=== PATIENT | female | born 1955 | race Two or more races ===

== ENCOUNTER 2017-05-16 19:01 | Emergency (ER) | payer MEDICARE, OTHER ==
[2017-05-16 19:46] LABS: ABSOLUTE BASOPHILS # (AUTO) 0.1 10^3/uL (0.0-0.2); ABSOLUTE EOSINOPHILS # (AUTO) 0.1 10^3/uL (0.0-0.6); ABSOLUTE MONOCYTES (AUTO) 0.5 10^3/uL (0.1-1.4); ABSOLUTE NEUT (AUTO) 3.7 10^3/uL (1.7-8.2); BASOPHILS % (AUTO) 0.7 % (0-2); EOSINOPHILS % (AUTO) 1.8 % (0-6); HEMATOCRIT 39.9 % (36.0-47.0); HEMOGLOBIN 13.4 g/dL (12.0-15.5); LYMPHOCYTES % (AUTO) 40.3 % (13-45); MEAN CORPUSCULAR HEMOGLOBIN 29.6 pg (27.0-33.4); MEAN CORPUSCULAR HGB CONC 33.5 g/dL (32.0-36.0); MEAN CORPUSCULAR VOLUME 88 fl (80-97); MONOCYTES % (AUTO) 7.1 % (3-13); PLATELET COUNT 244 10^3/uL (150-450); RED BLOOD COUNT 4.51 10^6/uL (3.72-5.28); RED CELL DISTRIBUTION WIDTH 15.4 % (11.5-14.0); SEGMENTED NEUTROPHILS % (AUTO) 50.1 % (42-78); TOTAL CELLS COUNTED % (AUTO) 100 %; WHITE BLOOD COUNT 7.3 10^3/uL (4.0-10.5)
[2017-05-16 19:55] LABS: ALANINE AMINOTRANSFERASE 30 U/L (9-52); ALBUMIN 4.5 g/dL (3.5-5.0); ALKALINE PHOSPHATASE 68 U/L (38-126); ANION GAP 13 (5-19); ASPARTATE AMINO TRANSFERASE 27 U/L (14-36); BILIRUBIN,DIRECT 0.3 mg/dL (0.0-0.4); BILIRUBIN,TOTAL 0.3 mg/dL (0.2-1.3); BLOOD UREA NITROGEN 14 mg/dL (7-20); CALCIUM 9.3 mg/dL (8.4-10.2); CARBON DIOXIDE 22 mmol/L (22-30); CHLORIDE 102 mmol/L (98-107); CREATINE KINASE 60 U/L (30-135); GLUCOSE 101 mg/dL (75-110); SODIUM 136.6 mmol/L (137-145); TOTAL PROTEIN 7.2 g/dL (6.3-8.2)
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
[2017-05-16 20:06] LABS: ANISOCYTOSIS SLIGHT; CREATINE KINASE MB 0.44 ng/mL (<4.55); PLATELET COMMENT ADEQUATE; POIKILOCYTOSIS SLIGHT; STOMATOCYTES SLIGHT; TOXIC GRANULATION SLIGHT
[2017-05-16 20:10] LABS: TROPONIN I < 0.012 ng/mL
[2017-05-16 20:25] LABS: ACETAMINOPHEN < 10 ug/mL (10-30); ALCOHOL < 10 mg/dL (NONE DETECTED); SALICYLATE < 1.0 mg/dL (2.0-20.0)
[2017-05-16] MEDS ORDERED: LORAZEPAM INJ 2 MG/1 ML VIAL IV ONE (20:46)
--- NOTE | 2017-05-16 20:54 | RADIOLOGY REPORT (SQ) ---
EXAM DESCRIPTION: CHEST SINGLE VIEW COMPLETED DATE/TIME: 05/16/2017 8:46 pm REASON FOR STUDY: altered mental status COMPARISON: None. EXAM PARAMETERS: NUMBER OF VIEWS: One view. TECHNIQUE: Single frontal radiographic view of the chest acquired. RADIATION DOSE: NA LIMITATIONS: None. FINDINGS: LUNGS AND PLEURA: No opacities, masses or pneumothorax. No pleural effusion. MEDIASTINUM AND HILAR STRUCTURES: No masses. Contour normal. HEART AND VASCULAR STRUCTURES: Heart normal in size. Normal vasculature. BONES: No acute findings. HARDWARE: None in the chest. OTHER: No other significant finding. IMPRESSION: NO ACUTE RADIOGRAPHIC FINDING IN THE CHEST. TECHNICAL DOCUMENTATION: JOB ID: [id number] [employer]- All Rights Reserved Reading location - IP/workstation name: [email or web address]
--- NOTE | 2017-05-16 21:48 | EKG REPORT ---
SEVERITY:- NORMAL ECG - SINUS RHYTHM : Confirmed by: Anna Hinton 16-May-2017 21:47:30
--- NOTE | 2017-05-16 21:57 | RADIOLOGY REPORT (SQ) ---
EXAM DESCRIPTION: CT HEAD WITHOUT COMPLETED DATE/TIME: 05/16/2017 9:44 pm REASON FOR STUDY: confusion, seizure like activity COMPARISON: None. TECHNIQUE: Axial images acquired through the brain without intravenous contrast. Images reviewed wi th bone, brain and subdural windows. Images stored on PACS. All CT scanners at this facility use dose modulation, iterative reconstruction, and/or weight based d osing when appropriate to reduce radiation dose to as low as reasonably achievable (ALARA). [facility]: Dose Right [facility]: CareDose [facility]: Dose Right [facility]: Teradose 4D [facility]: Smart [email or web address] RADIATION DOSE: CT Rad equipment meets quality standard of care and radiation dose reduction techniq ues were employed. CTDIvol: 64.6 mGy. DLP: 1163 mGy-cm. mGy. LIMITATIONS: None. FINDINGS: VENTRICLES: Normal size and contour. CEREBRUM: No masses. No hemorrhage. No midline shift. No evidence for acute infarction. Normal gra y/white matter differentiation. No areas of low density in the white matter. CEREBELLUM: No masses. No hemorrhage. No alteration of density. No evidence for acute infarction. EXTRAAXIAL SPACES: No fluid collections. No masses. ORBITS AND GLOBE: No intra- or extraconal masses. Normal contour of globe without masses. CALVARIUM: No fracture. PARANASAL SINUSES: No fluid or mucosal thickening. SOFT TISSUES: No mass or hematoma. OTHER: No other significant finding. IMPRESSION: NORMAL BRAIN CT WITHOUT CONTRAST. EVIDENCE OF ACUTE STROKE: NO. COMMENT: Quality ID # [id number]: Final reports with documentation of one or more dose reduction techniques (e.g., Automated exposure control, adjustment of the mA and/or kV according to patient size, use of iterative reconstruction technique) TECHNICAL DOCUMENTATION: JOB ID: [id number] [employer]- All Rights Reserved Reading location - IP/workstation name: [email or web address]
[2017-05-16] MEDS ORDERED: METOCLOPRAMIDE HCL INJ/PF 10 MG/2 ML SDV IV ONE (22:27)
[2017-05-16] MEDS ORDERED: KETOROLAC TROMETHAMINE INJ/PF 30 MG/1 ML SDV IV ONE (22:27)
[2017-05-16 22:32] LABS: APPEARANCE,URINE CLEAR; BILIRUBIN,URINE NEGATIVE (NEGATIVE); COLOR,URINE STRAW; GLUCOSE, URINE NEGATIVE (NEGATIVE); KETONES,URINE NEGATIVE (NEGATIVE); LEUKOCYTE ESTERASE,URINE NEGATIVE (NEGATIVE); NITRITE,URINE NEGATIVE (NEGATIVE); PROTEIN,URINE NEGATIVE (NEGATIVE); URINE SPECIFIC GRAVITY 1.006; UROBILINOGEN,URINE NEGATIVE mg/dL (<2.0)
[2017-05-16 22:44] LABS: URINE AMPHETAMINES SCREEN NEGATIVE; URINE BARBITURATES SCREEN NEGATIVE; URINE BENZODIAZEPINES SCREEN UNCONFIRMED POSITIVE; URINE COCAINE SCREEN NEGATIVE; URINE MARIJUANA (THC) SCREEN NEGATIVE; URINE METHADONE SCREEN NEGATIVE; URINE PHENCYCLIDINE SCREEN NEGATIVE
[2017-05-17] MEDS ORDERED: HYDROCODONE/ACETAMINOPHEN 5-325 MG (6 TAB/ER DISP) PO PRN (00:04)
[2017-05-17 00:10] VITALS: BP 102/68
== END 2017-05-17 00:23 | disposition home or self-care (01) ==
LOC: ER 19:01
DX: R29.818 Other symptoms and signs involving the nervous system (principal); R41.0 Disorientation, unspecified; R51 Headache; I10 Essential (primary) hypertension; M54.9 Dorsalgia, unspecified; G89.29 Other chronic pain; Z79.891 Long term (current) use of opiate analgesic; Z79.899 Other long term (current) drug therapy; Z78.1 Physical restraint status
CPT/HCPCS: 93005; 99285; 96374; 96375; 36415; 82553; 80307 ×4; 82550; 83735; 85025; 80053; 81001; 84484; 71045; 70450; 93010; J1885; J2765; J2060; A9270

== ENCOUNTER 2017-07-27 10:44 | Inpatient (IN) | payer MEDICARE, OTHER ==
[2017-07-27] MEDS ORDERED: NORMAL SALINE 1000 ML 1,000 ML IV ONE (11:17)
--- NOTE | 2017-07-27 11:18 | ER Document Report ---
ED Medical Screen (RME) - General Chief Complaint: Abdominal Pain Stated Complaint: ABDOMINAL PAIN Time Seen by Provider: 07/27/17 11:16 TRAVEL OUTSIDE OF THE [place] IN LAST 30 DAYS: No - HPI Notes: 07/27/17 11:21 Pleasant 61-year-old female presents with increasing upper abdominal pain nausea vomiting decreased stool. Patient has a distant history of gastric bypass done in the early 80s. Patient states she has a history of obstruction long time ago. Did not require surgical resection. States she has not had a normal bowel movement in 2 weeks also. 5 days ago as did flatus. Patient now unable to tolerate oral intake due to profound nausea and vomiting. Denies fever chills or trauma to her abdomen. Sent over by her PCP who provides medical records. - Related Data Allergies/Adverse Reactions: codeine Allergy (Verified 07/27/17 10:51) Past Medical History - Past Medical History Cardiac Medical History: Reports: Hx Hypertension Musculoskeltal Medical History: Reports Hx Musculoskeletal Deformity, Reports Hx Musculoskeletal Trauma Physical Exam - Vital signs Vitals: Temp Pulse Resp BP Pulse Ox 98.7 F 82 16 119/59 L 97 07/27/17 11:05 07/27/17 11:05 07/27/17 11:05 07/27/17 11:05 07/27/17 11:05 Course - Vital Signs Vital signs: Temp Pulse Resp BP Pulse Ox 98.7 F 82 16 119/59 L 97 07/27/17 11:05 07/27/17 11:05 07/27/17 11:05 07/27/17 11:05 07/27/17 11:05
[2017-07-27] MEDS ORDERED: ONDANSETRON HCL INJ/PF 4 MG/2 ML SDV IV ONE ×2 (11:21→13:28)
[2017-07-27 12:03] LABS: HEMATOCRIT 43.7 % (36.0-47.0); MEAN CORPUSCULAR HEMOGLOBIN 31.5 pg (27.0-33.4); MEAN CORPUSCULAR HGB CONC 34.2 g/dL (32.0-36.0); MEAN CORPUSCULAR VOLUME 92 fl (80-97); PLATELET COUNT 293 10^3/uL (150-450); RED BLOOD COUNT 4.76 10^6/uL (3.72-5.28); RED CELL DISTRIBUTION WIDTH 13.6 % (11.5-14.0); WHITE BLOOD COUNT 20.4 10^3/uL (4.0-10.5)
--- NOTE | 2017-07-27 12:19 | ER Document Report ---
ED GI/ - General Mode of Arrival: Ambulatory Information source: Patient TRAVEL OUTSIDE OF THE [place] IN LAST 30 DAYS: No - Related Data Home Medications: Celebrex. Vitamins. [place]. Baclofen <RADHA RAMSAY - Last Filed: 07/27/17 12:19> <WALKER FERREIRA - Last Filed: 07/27/17 19:21> - General Chief Complaint: Abdominal Pain Stated Complaint: ABDOMINAL PAIN Time Seen by Provider: 07/27/17 11:16 Notes: Patient is a 61-year-old female with remote gastric bypass surgery who presents to the emergency department today with complaints of upper abdominal pain. Patient has had a bowel obstruction in the past and she feels like her symptoms today feels like her bowel obstruction in the past. Patient states "anything that she puts in her mouth she vomits back up minutes later". Patient states she feels "bloated and gassy". Patient states she has had no flatulence or bowel movement since the end of June. Patient states she had chills last night. Patient denies seeing any blood in her vomit. (RADHA RAMSAY) - Related Data Allergies/Adverse Reactions: codeine Allergy (Verified 07/27/17 10:51) Past Medical History - General Information source: Patient - Social History Smoking Status: Never Smoker Cigarette use (# per day): No Chew tobacco use (# tins/day): No Frequency of alcohol use: None Drug Abuse: None Lives with: Family Family History: Reviewed & Not Pertinent Patient has suicidal ideation: No Patient has homicidal ideation: No - Past Medical History Cardiac Medical History: Reports: Hx Hypertension GI Medical History: Reports: Hx Gastroesophageal Reflux Disease Musculoskeltal Medical History: Reports Hx Musculoskeletal Deformity, Reports Hx Musculoskeletal Trauma Past Surgical History: Reports: Hx Appendectomy, Hx Cholecystectomy, Hx Hysterectomy, Hx Orthopedic Surgery - Back SxComment Only: Hx Vascular Surgery - Gastroplasty <RADHA RAMSAY - Last Filed: 07/27/17 12:19> Review of Systems - Review of Systems Constitutional: See HPI, Chills. denies: Fever EENT: No symptoms reported Cardiovascular: No symptoms reported Respiratory: No symptoms reported Gastrointestinal: See HPI, Abdominal pain, Nausea, Vomiting. denies: Diarrhea, Blood streaked bowels, Blood in vomit Genitourinary: No symptoms reported Female Genitourinary: No symptoms reported Musculoskeletal: No symptoms reported Skin: No symptoms reported Hematologic/Lymphatic: No symptoms reported Neurological/Psychological: No symptoms reported -: Yes All other systems reviewed and negative <RADHA RAMSAY - Last Filed: 07/27/17 12:19> Physical Exam <RADHA RAMSAY - Last Filed: 07/27/17 12:19> <WALKER FERREIRA - Last Filed: 07/27/17 19:21> - Vital signs Vitals: Temp Pulse Resp BP Pulse Ox 98.7 F 82 16 119/59 L 97 07/27/17 11:05 07/27/17 11:05 07/27/17 11:05 07/27/17 11:05 07/27/17 11:05 - Notes Notes: PHYSICAL EXAM GENERAL: Alert, interacts well. No acute distress. HEAD: Normocephalic, atraumatic. EYES: Pupils equal, round, and reactive to light. Extraocular movements intact. ENT: Oral mucosa moist, tongue midline. NECK: Full range of motion. Supple. Trachea midline. LUNGS: Clear to auscultation bilaterally, no wheezes, rales, or rhonchi. No respiratory distress. HEART: Regular rate and rhythm. No murmurs, gallops, or rubs. ABDOMEN: Soft, tenderness with palpation over LUQ, area is semi firm. Mild distension. Minimal bowel sounds present in all 4 quadrants after 30 seconds of listening. No guarding, rigidity, or rebound. EXTREMITIES: Moves all 4 extremities spontaneously. No edema, radial and dorsalis pedis pulses 2/4 bilaterally. No cyanosis. NEUROLOGICAL: Alert and oriented x3. Normal speech. PSYCH: Normal affect, normal mood. SKIN: Warm, dry, normal turgor. Mottled skin over low back consistent with chronic usage of heating pad. (RADHA RAMSAY) Course - Laboratory Result Diagrams: 07/27/17 11:47 07/27/17 11:47 <RADHA RAMSAY - Last Filed: 07/27/17 12:19> - Laboratory Result Diagrams: 07/27/17 11:47 07/27/17 11:47 <WALKER FERREIRA - Last Filed: 07/27/17 19:21> - Re-evaluation Re-evalutation: 07/27/17 16:59 Patient's history is quite concerning for small bowel obstruction, acute abdominal series shows a large amount of stool but no obvious obstruction, IV and orally contrast a CAT scan shows partial small bowel obstruction with a transition point around the jejunum, no evidence of perforation or inflammation , abdomen is not peritoneal, she does have white count of 20.4 with a bandemia, chemistries do not show any renal failure lactic acid is normal, urinalysis shows moderate blood but no signs of in infection, the trace leukocyte esterase is likely contamination from the squamous epithelial cells. Discussed the case with Dr. De León and Dr. Galaviz, Dr. Ford agrees to admit the patient, Dr. Galaviz agrees to consult. Dr. Galaviz recommends against an NG tube given the gastric bypass surgery in the small pouch. Patient will be kept n.p.o. and watched at this point. (WALKER FERREIRA) - Vital Signs Vital signs: Temp Pulse Resp BP Pulse Ox 98.7 F 82 16 119/59 L 97 07/27/17 11:05 07/27/17 11:05 07/27/17 11:05 07/27/17 11:05 07/27/17 11:05 - Laboratory Laboratory results interpreted by me: 07/27/17 07/27/17 07/27/17 11:47 11:47 13:28 WBC 20.4 H Band Neutrophils % 6 H Lymphocytes % (Manual) 6 L Abs Neuts (Manual) 17.1 H Abs Monocytes (Manual) 2.0 H Chloride 92 L Glucose 117 H Calcium 10.7 H Total Bilirubin 1.4 H Direct Bilirubin 0.5 H Total Protein 8.6 H Albumin 5.2 H Urine Ketones TRACE H Urine Blood MODERATE H Urine Bilirubin SMALL H Urine Urobilinogen 4.0 H Ur Leukocyte Esterase TRACE H Discharge <RADHA RAMSAY - Last Filed: 07/27/17 12:19> - Discharge Admitting Provider: [facility] Unit Admitted: Telemetry <WALKER FERREIRA - Last Filed: 07/27/17 19:21> - Discharge Clinical Impression: Partial small bowel obstruction Condition: Fair Disposition: ADMITTED INPATIENT Scribe Attestation: 07/27/17 19:21 I personally performed the services described in the documentation, reviewed and edited the documentation which was dictated to the scribe in my presence, and it accurately records my words and actions. (WALKER FERREIRA) Scribe Documentation - Scribe Written by Scribe:: Angelique Meier, 07/27/2017 1239 acting as scribe for :: Lynne <RADHA RAMSAY - Last Filed: 07/27/17 12:19>
[2017-07-27 12:24] LABS: ALANINE AMINOTRANSFERASE 27 U/L (9-52); ALBUMIN 5.2 g/dL (3.5-5.0); ALKALINE PHOSPHATASE 70 U/L (38-126); ANION GAP 18 (5-19); ASPARTATE AMINO TRANSFERASE 27 U/L (14-36); BILIRUBIN,DIRECT 0.5 mg/dL (0.0-0.4); BILIRUBIN,TOTAL 1.4 mg/dL (0.2-1.3); BLOOD UREA NITROGEN 20 mg/dL (7-20); CALCIUM 10.7 mg/dL (8.4-10.2); CARBON DIOXIDE 29 mmol/L (22-30); CHLORIDE 92 mmol/L (98-107); GLUCOSE 117 mg/dL (75-110); LIPASE 136.2 U/L (23-300); POTASSIUM 4.3 mmol/L (3.6-5.0); SODIUM 138.5 mmol/L (137-145); TOTAL PROTEIN 8.6 g/dL (6.3-8.2)
[2017-07-27 12:27] LABS: ABSOLUTE LYMPHOCYTES# (MANUAL) 1.2 10^3/uL (0.5-4.7); ABSOLUTE NEUTROPHILS# (MANUAL) 17.1 10^3/uL (1.7-8.2); BAND NEUTROPHILS % (MANUAL) 6 % (3-5); BASOPHILS % (MANUAL) 0 % (0-2); EOSINOPHILS % (MANUAL) 0 % (0-6); LYMPHOCYTES % (MANUAL) 6 % (13-45); MONOCYTES % (MANUAL) 10 % (3-13); PLATELET COMMENT ADEQUATE; RBC MORPHOLOGY COMMENT NORMO-CYTIC/CHROMIC; SEGMENTED NEUTROPHILS % (MAN) 78 % (42-78); TOTAL CELLS COUNTED 100; TOXIC GRANULATION SLIGHT
--- NOTE | 2017-07-27 13:05 | RADIOLOGY REPORT (SQ) ---
EXAM DESCRIPTION: ACUTE ABDOMEN SERIES COMPLETED DATE/TIME: 07/27/2017 12:46 pm REASON FOR STUDY: no BM or gas x 5 days, vom, suspect SBO COMPARISON: None. NUMBER OF VIEWS: Three views. TECHNIQUE: Frontal chest, supine abdomen and upright/decubitus abdomen radiographic images acquired. LIMITATIONS: None. FINDINGS: CHEST: Lungs clear of infiltrates. FREE AIR: None. No abnormal gas collections. BOWEL GAS PATTERN: Nonobstructive pattern. No dilated loops or air fluid levels. Prominent stool thr oughout the colon. CALCIFICATIONS: No suspicious calcifications. HARDWARE: Surgical clips. Hardware in the lumbar spine. SOFT TISSUES: No gross mass or suggestion of organomegaly. BONES: No acute fracture. No worrisome bone lesions. OTHER: No other significant finding. IMPRESSION: NO RADIOGRAPHIC EVIDENCE FOR ACUTE ABDOMINAL DISEASE. PROMINENT STOOL THROUGHOUT THE CO LESLYE. TECHNICAL DOCUMENTATION: JOB ID: [id number] [employer]- All Rights Reserved Reading location - IP/workstation name: [email or web address]-COUNT INCLUDES THE [facility]-RR
[2017-07-27] MEDS ORDERED: MORPHINE SULFATE 10 MG/ML INJ IV ONE ×2 (13:28→16:54)
[2017-07-27 14:02] LABS: APPEARANCE,URINE SLIGHTLY-CLOUDY; BILIRUBIN,URINE SMALL (NEGATIVE); GLUCOSE, URINE NEGATIVE (NEGATIVE); KETONES,URINE TRACE mg/dL (NEGATIVE); LEUKOCYTE ESTERASE,URINE TRACE (NEGATIVE); NITRITE,URINE NEGATIVE (NEGATIVE); PROTEIN,URINE NEGATIVE (NEGATIVE); URINE SPECIFIC GRAVITY 1.021
[2017-07-27 14:03] LABS: COLOR,URINE YELLOW
--- NOTE | 2017-07-27 16:02 | RADIOLOGY REPORT (SQ) ---
EXAM DESCRIPTION: CT ABD/PELVIS WITH IV ORAL COMPLETED DATE/TIME: 07/27/2017 3:43 pm REASON FOR STUDY: no BM x 5 days, h/o gastric bypass, r/o SBO COMPARISON: None. TECHNIQUE: CT scan of the abdomen and pelvis performed using helical scanning technique with dynamic intravenous contrast injection. Oral contrast. Images reviewed with lung, soft tissue, and bone win dows. Reconstructed coronal and sagittal MPR images reviewed. Delayed images for evaluation of the ur inary system also acquired. All images stored on PACS. All CT scanners at this facility use dose modulation, iterative reconstruction, and/or weight based d osing when appropriate to reduce radiation dose to as low as reasonably achievable (ALARA). [facility]: Dose Right [facility]: CareDose [facility]: Dose Right [facility]: Teradose 4D [facility]: [employer] CONTRAST TYPE AND DOSE: Contrast type and dose not recorded. RENAL FUNCTION: BUN 20 creatinine 0.93 RADIATION DOSE: CT Rad equipment meets quality standard of care and radiation dose reduction techniq ues were employed. CTDIvol: 8.1 - 11.1 mGy. DLP: 1052 mGy-cm.. LIMITATIONS: None. FINDINGS: LOWER CHEST: There are faintly defined ground-glass infiltrates in the right lower lobe. LIVER: Normal size. No masses. No dilated ducts. SPLEEN: Normal size. No focal lesions. PANCREAS: No masses. No significant calcifications. No adjacent inflammation or peripancreatic fluid collections. Pancreatic duct not dilated. GALLBLADDER: Surgically absent. ADRENAL GLANDS: No significant masses or asymmetry. RIGHT KIDNEY AND URETER: No solid masses. No significant calcifications. No hydronephrosis or hyd roureter. LEFT KIDNEY AND URETER: No solid masses. No significant calcifications. No hydronephrosis or hydr oureter. AORTA AND VESSELS: No aneurysm. No dissection. Renal arteries, SMA, celiac without stenosis. RETROPERITONEUM: No retroperitoneal adenopathy, hemorrhage or masses. BOWEL AND PERITONEAL CAVITY: Radiopaque suture is present in association with the stomach. There are dilated loops of jejunum on the left. A transition point is just to the left of the midline on imag e 49. Descending and sigmoid diverticula are present with no acute inflammatory changes. APPENDIX: Surgically absent. PELVIS: No mass. No free fluid. Normal bladder. ABDOMINAL WALL: No masses. No hernias. BONES: Posterior rods at L4-5 and L5-S1. OTHER: No other significant finding. IMPRESSION: 1. Ill-defined ground-glass infiltrates in the right lower lobe may suggest chronic int erstitial changes, but may suggest acute infection. 2. Partial small bowel obstruction. 3. Diverticulosis coli. TECHNICAL DOCUMENTATION: JOB ID: [id number] Quality ID # [id number]: Final reports with documentation of one or more dose reduction techniques (e.g., Au tomated exposure control, adjustment of the mA and/or kV according to patient size, use of iterative reconstruction technique) 2010 [employer]- All Rights Reserved Reading location - IP/workstation name: [email or web address]
[2017-07-27] MEDS ORDERED: HYDROMORPHONE HCL INJ/PF 2 MG/ML AMPULE IV ONE (17:00)
--- NOTE | 2017-07-27 18:23 | PDOC CONSULTATION ---
Consultation Consult Date: 07/27/17 Consult reason:: Small bowel obstruction status post gastric bypass History of Present Illness Admission Date/PCP: 07/27/17 17:16 LIA WILKINS MD Patient complains of: Abdominal pain and nausea vomiting. History of Present Illness: ESTELA RIVERA is a 61 year old female with a history of open gastric bypass ( in the 80s). The patient reports a 5 day history of an inability to take p.o. She reports that all solids and liquids are vomited immediately after swallowing. She denies any bilious emesis. Patient reports bloating and left upper quadrant abdominal pain. Her pain is severe and constant. It is sharp and stabbing. The patient denies chest pain, shortness of breath, fevers, chills, melena, hematochezia, hematemesis. The patient reports a history of anemia and new onset seizures. The patient does not follow with a bariatric surgeon. Nothing makes her pain better. Palpation and movement make her pain worse. At the worst, her pain was 10 out of 10. After pain medication in the emergency department she reports her pain is a 4 out of 10. Past Medical History Cardiac Medical History: Reports: Hypertension Neurological Medical History: Reports: Seizures GI Medical History: Reports: Gastroesophageal Reflux Disease, Other - History of gastric bypass. Past Surgical History Past Surgical History: Reports: Appendectomy, Cholecystectomy, Hysterectomy, Orthopedic Surgery - Back Sx Comment Only: Vascular Surgery - Gastroplasty Social History Lives with: Family Smoking Status: Never Smoker Frequency of Alcohol Use: None Family History Family History: Reviewed & Not Pertinent Parental Family History Reviewed: Yes Children Family History Reviewed: Yes Sibling(s) Family History Reviewed.: Yes Medication/Allergy Home Medications: Celecoxib [Celebrex 100 mg Capsule] 100 mg PO Q12 07/27/17 Esomeprazole Mag Trihydrate [Nexium] 40 mg PO DAILY 07/27/17 Hydrocodone/Acetaminophen [[place] 7.5-325 Tablet] 1 tab PO Q6 07/27/17 Allergies/Adverse Reactions: codeine Allergy (Verified 07/27/17 10:51) Review of Systems Constitutional: ABSENT: chills, fatigue, fever(s) Eyes: ABSENT: visual disturbances Ears: ABSENT: hearing changes Nose, Mouth, and Throat: ABSENT: sore throat Cardiovascular: ABSENT: chest pain, palpitations Respiratory: ABSENT: cough, dyspnea Gastrointestinal: PRESENT: abdominal pain, bloating, constipation - chronic Musculoskeletal: PRESENT: back pain - chronic Integumentary: ABSENT: lesions, pruritus, rash Neurological: PRESENT: other - new onset seizures. ABSENT: abnormal speech, confusion, dizziness Psychiatric: ABSENT: anxiety, depression Endocrine: ABSENT: cold intolerance, heat intolerance Hematologic/Lymphatic: ABSENT: easy bleeding, easy bruising Physical Exam Vital Signs: Temp Pulse Resp BP Pulse Ox 98.7 F 82 16 119/59 L 97 07/27/17 11:05 07/27/17 11:05 07/27/17 11:05 07/27/17 11:05 07/27/17 11:05 General appearance: PRESENT: mild distress - abdominal discomfort Head exam: PRESENT: atraumatic, normocephalic Eye exam: PRESENT: EOMI, PERRLA. ABSENT: scleral icterus Mouth exam: PRESENT: moist, neck supple Teeth exam: PRESENT: poor dentation Neck exam: ABSENT: lymphadenopathy, meningismus, tenderness, thyromegaly, tracheal deviation Respiratory exam: PRESENT: clear to auscultation maury, unlabored. ABSENT: chest wall tenderness, rales, retraction, rhonchi, tachypnea Cardiovascular exam: PRESENT: RRR. ABSENT: tachycardia Pulses: PRESENT: normal radial pulses Vascular exam: PRESENT: normal capillary refill. ABSENT: pallor GI/Abdominal exam: PRESENT: distended, guarding - voluntary LUQ, tenderness - LUQ. ABSENT: rigid Rectal exam: PRESENT: deferred Extremities exam: ABSENT: clubbing, tenderness Musculoskeletal exam: PRESENT: normal inspection Neurological exam: PRESENT: alert, awake, oriented to person, oriented to place , oriented to time, oriented to situation, CN II-XII grossly intact. ABSENT: motor sensory deficit Psychiatric exam: ABSENT: agitated, anxious, depressed Skin exam: ABSENT: cyanosis, erythema, jaundice, pallor Results Impressions: Abdomen/Pelvis CT 07/27/17 00:00 IMPRESSION: 1. Ill-defined ground-glass infiltrates in the right lower lobe may suggest chronic interstitial changes, but may suggest acute infection. 2. Partial small bowel obstruction. 3. Diverticulosis coli. Acute Abdomen Series 07/27/17 12:02 IMPRESSION: NO RADIOGRAPHIC EVIDENCE FOR ACUTE ABDOMINAL DISEASE. PROMINENT STOOL THROUGHOUT THE COLON. Assessment & Plan - Diagnosis (1) Complications of gastric bypass surgery Is this a current diagnosis for this admission?: Yes (2) Partial small bowel obstruction Is this a current diagnosis for this admission?: Yes - Plan Summary Plan Summary: This is a 61-year-old female with a small bowel obstruction. She is status post gastric bypass, but has never experienced similar symptoms in the past. I have personally reviewed the patient's CT scan images and report. She has an obstruction occurring proximal to the jejunojejunostomy. Her gastric limb appears to be retrocolic. I believe she is experiencing an internal hernia. I have discussed options at length with the patient, including operative versus nonoperative management. At present the patient does not exhibit signs of peritonitis, but I have discussed with her that she may require surgical intervention resolve her obstruction. The patient wishes to discuss these options with her family. I will begin with a 2 L bolus of crystalloid. This will help treat her profound dehydration. I will follow this patient very closely with you.
[2017-07-27] MEDS ORDERED: BENZOCAINE 20% AEROSOL SPRAY 60 GM TP ONE (18:44)
[2017-07-27] MEDS ORDERED: PHENOL/SODIUM PHENOLATE 100 SPRAY/177 ML BOTTLE PO PRN (18:52)
[2017-07-27] MEDS ORDERED: RINGERS SOLUTION,LACTATED 2,000 ML IV PRN (19:06)
--- NOTE | 2017-07-27 19:25 | RADIOLOGY REPORT (SQ) ---
EXAM DESCRIPTION: KUB/ABDOMEN (SINGLE VIEW) COMPLETED DATE/TIME: 07/27/2017 7:16 pm REASON FOR STUDY: NG placement COMPARISON: 07/27/2017 NUMBER OF VIEWS: One view. TECHNIQUE: Supine radiographic image of the abdomen acquired. LIMITATIONS: None. FINDINGS: BOWEL GAS PATTERN: Normal bowel gas pattern. No dilated loops. CALCIFICATIONS: No suspicious calcifications. SOFT TISSUES: No gross mass or suggestion of organomegaly. HARDWARE: Nasogastric tube within the stomach however side port at the GE junction. Hardware otherwi se stable. BONES: No acute fracture. No worrisome bone lesions. OTHER: Contrast seen within the renal collecting systems and bladder from prior CT. IMPRESSION: NO RADIOGRAPHIC EVIDENCE FOR ACUTE ABDOMINAL DISEASE. SIDE PORT OF NASOGASTRIC TUBE LOCATED AT THE GE JUNCTION. RECOMMEND ADVANCING 2 TO 3 CM. TECHNICAL DOCUMENTATION: JOB ID: [id number] [employer] All Rights Reserved Reading location - IP/workstation name: [email or web address]
[2017-07-27] MEDS ORDERED: DEXTROSE 50%-WATER 25 GM/50 ML DISP.SYRIN IV PRN ×2 (19:26)
[2017-07-27] MEDS ORDERED: GLUCAGON,HUMAN RECOMB 1 MG INJ SUBCUT PRN (19:26)
[2017-07-27] MEDS ORDERED: DEXTROSE 40% GEL 15 GM TUBE PO PRN ×2 (19:26)
--- NOTE | 2017-07-27 19:26 | PDOC H&P ---
History of Present Illness Admission Date/PCP: 07/27/17 17:16 LIA WILKINS MD Patient complains of: 5d vomiting constipation epigastric pain History of Present Illness: ESTELA RIVERA is a 61 year old female with 1981 gastroplasty for weight loss. Past Medical History Cardiac Medical History: Reports: None, Hypertension Pulmonary Medical History: Reports: None EENT Medical History: Reports: None Neurological Medical History: Reports: Migraine, Seizures Endocrine Medical History: Reports: None Renal/ Medical History: Reports: None Malignancy Medical History: Reports: Ovarian Cancer - 1981 GI Medical History: Reports: Gastroesophageal Reflux Disease, Peptic Ulcer Disease Musculoskeltal Medical History: Reports: Arthritis - low back pain Psychiatric Medical History: Reports: Depression, Other - panic Traumatic Medical History: Reports: None Hematology: Reports: None Infectious Medical History: Reports: None Past Surgical History Past Surgical History: Reports: Appendectomy, Cholecystectomy, Hysterectomy, Orthopedic Surgery - laminectomy, Other - gastroplasty Social History Information Source: Dr. Cervantes Lives with: Family Smoking Status: Former Smoker Frequency of Alcohol Use: None Hx Recreational Drug Use: No Hx Prescription Drug Abuse: No - Advance Directive Resuscitation Status: Full Code Family History Family History: Malignancy, Other - father alcoholic Parental Family History Reviewed: Yes Children Family History Reviewed: Yes Sibling(s) Family History Reviewed.: Yes Medication/Allergy Home Medications: Celecoxib [Celebrex 100 mg Capsule] 100 mg PO Q12 07/27/17 Esomeprazole Mag Trihydrate [Nexium] 40 mg PO DAILY 07/27/17 Hydrocodone/Acetaminophen [[place] 7.5-325 Tablet] 1 tab PO Q6 07/27/17 Allergies/Adverse Reactions: codeine Allergy (Verified 07/27/17 10:51) Review of Systems Constitutional: PRESENT: headache(s), weight loss. ABSENT: fever(s) Nose, Mouth, and Throat: ABSENT: sore throat Cardiovascular: ABSENT: chest pain, dyspnea on exertion Gastrointestinal: PRESENT: abdominal pain, constipation, dysphagia, vomiting Genitourinary: ABSENT: dysuria, hematuria Musculoskeletal: PRESENT: back pain Integumentary: ABSENT: rash Physical Exam Vital Signs: Temp Pulse Resp BP Pulse Ox 98.7 F 82 16 119/59 L 97 07/27/17 11:05 07/27/17 11:05 07/27/17 11:05 07/27/17 11:05 07/27/17 11:05 General appearance: PRESENT: mild distress Mouth exam: PRESENT: moist Neck exam: ABSENT: lymphadenopathy, tenderness, thyromegaly Respiratory exam: PRESENT: clear to auscultation maury Cardiovascular exam: ABSENT: diastolic murmur, irregular rhythm, systolic murmur GI/Abdominal exam: PRESENT: tenderness - epigastric. ABSENT: guarding, mass, organolmegaly, rebound Extremities exam: ABSENT: pedal edema Neurological exam: PRESENT: oriented to situation Psychiatric exam: PRESENT: anxious Results Laboratory Results: Abnormal - 24 hr 07/27/17 07/27/17 07/27/17 11:47 11:47 13:28 WBC 20.4 H Band Neutrophils % 6 H Lymphocytes % (Manual) 6 L Abs Neuts (Manual) 17.1 H Abs Monocytes (Manual) 2.0 H Chloride 92 L Glucose 117 H Calcium 10.7 H Total Bilirubin 1.4 H Direct Bilirubin 0.5 H Total Protein 8.6 H Albumin 5.2 H Urine Ketones TRACE H Urine Blood MODERATE H Urine Bilirubin SMALL H Urine Urobilinogen 4.0 H Ur Leukocyte Esterase TRACE H Impressions: Abdomen/Pelvis CT 07/27/17 00:00 IMPRESSION: 1. Ill-defined ground-glass infiltrates in the right lower lobe may suggest chronic interstitial changes, but may suggest acute infection. 2. Partial small bowel obstruction. 3. Diverticulosis coli. Acute Abdomen Series 07/27/17 12:02 IMPRESSION: NO RADIOGRAPHIC EVIDENCE FOR ACUTE ABDOMINAL DISEASE. PROMINENT STOOL THROUGHOUT THE COLON. Assessment & Plan - Diagnosis (1) Postprocedural partial intestinal obstruction Is this a current diagnosis for this admission?: Yes Plan: npo ivf consult surgery - Inpatient Certification Based on my medical assessment, after consideration of the patient's comorbidities, presenting symptoms, or acuity I expect that the services needed warrant INPATIENT care.: Yes I certify that my determination is in accordance with my understanding of Medicare's requirements for reasonable and necessary INPATIENT services [42 CFR 412.3e].: Yes Medical Necessity: Significant Comorbidiites Make Outpatient Treatment Too Risky , Need For IV Fluids, Need For Continuous Telemetry Monitoring, Need for Pain Control, Risk of Complication if Not Cared For in Hospital, Risk of Diagnosis Which Will Require Inpatient Eval/Care/Monitoring
--- NOTE | 2017-07-27 19:57 | EKG REPORT ---
SEVERITY:- NORMAL ECG - SINUS RHYTHM : Confirmed by: Kenia Perry MD 27-Jul-2017 19:56:23
[2017-07-27] MEDS ORDERED: LANSOPRAZOLE 30 MG TAB.RAP.DR PO ONE (21:00)
[2017-07-27] MEDS: KETOROLAC TROMETHAMINE INJ/PF 30 MG/1 ML SDV IV PRN (21:35)
[2017-07-28] MEDS: KETOROLAC TROMETHAMINE INJ/PF 30 MG/1 ML SDV IV PRN ×4 (03:17→21:26)
[2017-07-28] MEDS: ONDANSETRON HCL INJ/PF 4 MG/2 ML SDV IV PRN (04:06)
[2017-07-28 05:03] LABS: ABSOLUTE EOSINOPHILS # (AUTO) 0.1 10^3/uL (0.0-0.6); ABSOLUTE LYMPHOCYTES (AUTO) 0.5 10^3/uL (0.5-4.7); ABSOLUTE MONOCYTES (AUTO) 0.1 10^3/uL (0.1-1.4); ABSOLUTE NEUT (AUTO) 5.3 10^3/uL (1.7-8.2); BASOPHILS % (AUTO) 0.6 % (0-2); HEMATOCRIT 38.9 % (36.0-47.0); LYMPHOCYTES % (AUTO) 8.5 % (13-45); MEAN CORPUSCULAR HEMOGLOBIN 30.9 pg (27.0-33.4); MEAN CORPUSCULAR HGB CONC 33.5 g/dL (32.0-36.0); MEAN CORPUSCULAR VOLUME 92 fl (80-97); MONOCYTES % (AUTO) 1.3 % (3-13); PLATELET COUNT 197 10^3/uL (150-450); RED BLOOD COUNT 4.21 10^6/uL (3.72-5.28); RED CELL DISTRIBUTION WIDTH 13.7 % (11.5-14.0); SEGMENTED NEUTROPHILS % (AUTO) 88.6 % (42-78); TOTAL CELLS COUNTED % (AUTO) 100 %
[2017-07-28 05:17] LABS: ANION GAP 10 (5-19); BLOOD UREA NITROGEN 17 mg/dL (7-20); CALCIUM 9.5 mg/dL (8.4-10.2); CARBON DIOXIDE 29 mmol/L (22-30); CHLORIDE 100 mmol/L (98-107); GLUCOSE 91 mg/dL (75-110); POTASSIUM 4.6 mmol/L (3.6-5.0); SODIUM 138.6 mmol/L (137-145)
[2017-07-28] MEDS: LANSOPRAZOLE 30 MG TAB.RAP.DR PO SCH (06:30)
[2017-07-28] MEDS: DEXTROSE 5%-1/2 NORMAL SALINE 1,000 ML IV PRN (07:00)
--- NOTE | 2017-07-28 07:43 | PDOC PROGRESS REPORT ---
Subjective Progress Note for:: 07/28/17 Subjective:: less nausea but still epigastric LUQ headache lbp. Toradol wore off. Reason For Visit: PARTIAL SMALL BOWEL OBSTRUCTION Physical Exam Vital Signs: Temp Pulse Resp BP Pulse Ox 98.6 F 60 17 92/41 L 96 07/27/17 23:34 07/28/17 02:00 07/27/17 23:34 07/27/17 23:34 07/27/17 23:34 Intake & Output 07/26/17 07/27/17 07/28/17 07:59 07:59 07:59 Intake Total 2000 Output Total 150 Balance 1850 Weight 169 lb 5.04 oz General appearance: PRESENT: mild distress Respiratory exam: PRESENT: clear to auscultation maury Cardiovascular exam: PRESENT: systolic murmur. ABSENT: diastolic murmur, irregular rhythm Murmur grade: 2 GI/Abdominal exam: PRESENT: tenderness - LUQ. ABSENT: guarding, mass, organolmegaly, rebound Extremities exam: ABSENT: pedal edema Neurological exam: PRESENT: oriented to situation Psychiatric exam: PRESENT: anxious Results Laboratory Results: 07/28/17 04:20 07/28/17 04:20 07/28/17 07/28/17 04:20 04:20 WBC 6.0 RBC 4.21 Hgb 13.0 Hct 38.9 MCV 92 MCH 30.9 MCHC 33.5 RDW 13.7 Plt Count 197 Seg Neutrophils % 88.6 H Lymphocytes % 8.5 L Monocytes % 1.3 L Eosinophils % 1.0 Basophils % 0.6 Absolute Neutrophils 5.3 Absolute Lymphocytes 0.5 Absolute Monocytes 0.1 Absolute Eosinophils 0.1 Absolute Basophils 0.0 Sodium 138.6 Potassium 4.6 Chloride 100 Carbon Dioxide 29 Anion Gap 10 BUN 17 Creatinine 0.59 Est GFR ( Amer) > 60 Est GFR (Non-Af Amer) > 60 Glucose 91 Calcium 9.5 Impressions: Abdomen/Pelvis CT 07/27/17 00:00 IMPRESSION: 1. Ill-defined ground-glass infiltrates in the right lower lobe may suggest chronic interstitial changes, but may suggest acute infection. 2. Partial small bowel obstruction. 3. Diverticulosis coli. KUB X-Ray 07/27/17 00:00 IMPRESSION: NO RADIOGRAPHIC EVIDENCE FOR ACUTE ABDOMINAL DISEASE. SIDE PORT OF NASOGASTRIC TUBE LOCATED AT THE GE JUNCTION. RECOMMEND ADVANCING 2 TO 3 CM. Acute Abdomen Series 07/27/17 12:02 IMPRESSION: NO RADIOGRAPHIC EVIDENCE FOR ACUTE ABDOMINAL DISEASE. PROMINENT STOOL THROUGHOUT THE COLON. Assessment & Plan - Diagnosis (1) Postprocedural partial intestinal obstruction Is this a current diagnosis for this admission?: Yes Plan: Surgeons suggested observation NPO but said surgery may be needed for suspected internal hernia. WBC down to normal. SS enema for ample stool on xr. (2) Low back pain Qualifiers: Chronicity: chronic Back pain laterality: bilateral Sciatica presence: without sciatica Qualified Code(s): M54.5 - Low back pain; G89.29 - Other chronic pain; G89.29 - Other chronic pain Is this a current diagnosis for this admission?: Yes Plan: toradol (3) Seizure Is this a current diagnosis for this admission?: Yes Plan: 3m ago. Neuro pending for treatment decision. (4) Panic disorder without agoraphobia Is this a current diagnosis for this admission?: Yes - Inpatient Certification Medical Necessity: Significant Comorbidiites Make Outpatient Treatment Too Risky , Need Close Monitoring Due to Risk of Patient Decompensation, Need For IV Fluids, Need For Continuous Telemetry Monitoring, Need for Pain Control, Risk of Complication if Not Cared For in Hospital, Risk of Diagnosis Which Will Require Inpatient Eval/Care/Monitoring
--- NOTE | 2017-07-28 16:42 | PDOC PROGRESS REPORT ---
Subjective Progress Note for:: 07/28/17 Subjective:: Still c/o LUQ pains. Feels abd much less distended compared to on admission yesterday. C/o Chronic back pains and asking for pain medicine No flatus yet Reason For Visit: PARTIAL BOWEL OBSTRUCTION POST BYPASS Physical Exam Vital Signs: Temp Pulse Resp BP Pulse Ox 98.6 F 82 17 92/41 L 96 07/27/17 23:34 07/28/17 07:00 07/27/17 23:34 07/27/17 23:34 07/27/17 23:34 Intake & Output 07/27/17 07/28/17 07/29/17 06:59 06:59 06:59 Intake Total 2000 Output Total 150 Balance 1850 Weight 76.8 kg Exam: NGT inadvertently disconnected. Abd not distended. Soft but tumbler tender at the LUQ Rest of abd soft and non tender Results Laboratory Results: 07/28/17 04:20 07/28/17 04:20 07/28/17 07/28/17 04:20 04:20 WBC 6.0 RBC 4.21 Hgb 13.0 Hct 38.9 MCV 92 MCH 30.9 MCHC 33.5 RDW 13.7 Plt Count 197 Seg Neutrophils % 88.6 H Lymphocytes % 8.5 L Monocytes % 1.3 L Eosinophils % 1.0 Basophils % 0.6 Absolute Neutrophils 5.3 Absolute Lymphocytes 0.5 Absolute Monocytes 0.1 Absolute Eosinophils 0.1 Absolute Basophils 0.0 Sodium 138.6 Potassium 4.6 Chloride 100 Carbon Dioxide 29 Anion Gap 10 BUN 17 Creatinine 0.59 Est GFR ( Amer) > 60 Est GFR (Non-Af Amer) > 60 Glucose 91 Calcium 9.5 Impressions: Abdomen/Pelvis CT 07/27/17 00:00 IMPRESSION: 1. Ill-defined ground-glass infiltrates in the right lower lobe may suggest chronic interstitial changes, but may suggest acute infection. 2. Partial small bowel obstruction. 3. Diverticulosis coli. KUB X-Ray 07/27/17 00:00 IMPRESSION: NO RADIOGRAPHIC EVIDENCE FOR ACUTE ABDOMINAL DISEASE. SIDE PORT OF NASOGASTRIC TUBE LOCATED AT THE GE JUNCTION. RECOMMEND ADVANCING 2 TO 3 CM. Acute Abdomen Series 07/27/17 12:02 IMPRESSION: NO RADIOGRAPHIC EVIDENCE FOR ACUTE ABDOMINAL DISEASE. PROMINENT STOOL THROUGHOUT THE COLON. Assessment & Plan - Time Time Spent with patient: 15-24 minutes - Plan Summary Plan Summary: Continue NPO May hold placing back NGT for now.NO N/V and no distention KUB today showed normal bowel loops. WBC now normal Re-evaluate in am. Pain mx
[2017-07-29] MEDS: DEXTROSE 5%-1/2 NORMAL SALINE 1,000 ML IV PRN (01:31)
[2017-07-29] MEDS: ONDANSETRON HCL INJ/PF 4 MG/2 ML SDV IV PRN ×4 (02:48→23:41)
[2017-07-29] MEDS: KETOROLAC TROMETHAMINE INJ/PF 30 MG/1 ML SDV IV PRN ×3 (03:31→15:36)
[2017-07-29 05:28] LABS: ABSOLUTE EOSINOPHILS # (AUTO) 0.2 10^3/uL (0.0-0.6); ABSOLUTE LYMPHOCYTES (AUTO) 1.3 10^3/uL (0.5-4.7); ABSOLUTE MONOCYTES (AUTO) 0.8 10^3/uL (0.1-1.4); ABSOLUTE NEUT (AUTO) 10.9 10^3/uL (1.7-8.2); BASOPHILS % (AUTO) 0.2 % (0-2); EOSINOPHILS % (AUTO) 1.3 % (0-6); HEMATOCRIT 32.8 % (36.0-47.0); HEMOGLOBIN 11.2 g/dL (12.0-15.5); LYMPHOCYTES % (AUTO) 9.8 % (13-45); MEAN CORPUSCULAR HEMOGLOBIN 31.5 pg (27.0-33.4); MEAN CORPUSCULAR HGB CONC 34.1 g/dL (32.0-36.0); MEAN CORPUSCULAR VOLUME 92 fl (80-97); MONOCYTES % (AUTO) 6.1 % (3-13); PLATELET COUNT 180 10^3/uL (150-450); RED BLOOD COUNT 3.56 10^6/uL (3.72-5.28); RED CELL DISTRIBUTION WIDTH 13.3 % (11.5-14.0); SEGMENTED NEUTROPHILS % (AUTO) 82.6 % (42-78); TOTAL CELLS COUNTED % (AUTO) 100 %
[2017-07-29 05:38] LABS: WHITE BLOOD COUNT 13.2 10^3/uL (4.0-10.5)
[2017-07-29 05:39] LABS: ANION GAP 6 (5-19); BLOOD UREA NITROGEN 15 mg/dL (7-20); CALCIUM 8.7 mg/dL (8.4-10.2); CARBON DIOXIDE 29 mmol/L (22-30); CHLORIDE 100 mmol/L (98-107); GLUCOSE 95 mg/dL (75-110); SODIUM 135.1 mmol/L (137-145)
[2017-07-29 05:55] LABS: POTASSIUM 3.3 mmol/L (3.6-5.0)
[2017-07-29] MEDS: LANSOPRAZOLE 30 MG TAB.RAP.DR PO SCH (06:54)
[2017-07-29] MEDS ORDERED: POTASSI CL 20 MEQ/D5-1/2NS 1L 1,000 ML IV PRN (07:15)
--- NOTE | 2017-07-29 07:54 | PDOC PROGRESS REPORT ---
Subjective Progress Note for:: 07/29/17 Subjective:: 2 stools but still LUQ pain and nausea. Reason For Visit: PARTIAL BOWEL OBSTRUCTION POST BYPASS Physical Exam Vital Signs: Temp Pulse Resp BP Pulse Ox 98.1 F 60 16 106/48 L 97 07/29/17 04:00 07/29/17 07:00 07/29/17 04:00 07/29/17 04:00 07/29/17 04:00 Intake & Output 07/27/17 07/28/17 07/29/17 07:59 07:59 07:59 Intake Total 1999 973 Output Total 150 Balance 1850 973 Weight 169 lb 5.04 oz 169 lb 12.095 oz General appearance: PRESENT: no acute distress Respiratory exam: PRESENT: clear to auscultation maury Cardiovascular exam: ABSENT: diastolic murmur, irregular rhythm, systolic murmur Murmur grade: 2 GI/Abdominal exam: PRESENT: tenderness - moderate LUQ. ABSENT: mass, organolmegaly Extremities exam: ABSENT: pedal edema Neurological exam: PRESENT: oriented to situation Psychiatric exam: PRESENT: appropriate affect Results Laboratory Results: 07/29/17 04:08 07/29/17 04:08 07/29/17 07/29/17 04:08 04:08 WBC 13.2 H D RBC 3.56 L Hgb 11.2 L Hct 32.8 L MCV 92 MCH 31.5 MCHC 34.1 RDW 13.3 Plt Count 180 Seg Neutrophils % 82.6 H Lymphocytes % 9.8 L Monocytes % 6.1 Eosinophils % 1.3 Basophils % 0.2 Absolute Neutrophils 10.9 H Absolute Lymphocytes 1.3 Absolute Monocytes 0.8 Absolute Eosinophils 0.2 Absolute Basophils 0.0 Sodium 135.1 L Potassium 3.3 L D Chloride 100 Carbon Dioxide 29 Anion Gap 6 BUN 15 Creatinine 0.52 Est GFR ( Amer) > 60 Est GFR (Non-Af Amer) > 60 Glucose 95 Calcium 8.7 Impressions: Abdomen/Pelvis CT 07/27/17 00:00 IMPRESSION: 1. Ill-defined ground-glass infiltrates in the right lower lobe may suggest chronic interstitial changes, but may suggest acute infection. 2. Partial small bowel obstruction. 3. Diverticulosis coli. KUB X-Ray 07/27/17 00:00 IMPRESSION: NO RADIOGRAPHIC EVIDENCE FOR ACUTE ABDOMINAL DISEASE. SIDE PORT OF NASOGASTRIC TUBE LOCATED AT THE GE JUNCTION. RECOMMEND ADVANCING 2 TO 3 CM. Acute Abdomen Series 07/27/17 12:02 IMPRESSION: NO RADIOGRAPHIC EVIDENCE FOR ACUTE ABDOMINAL DISEASE. PROMINENT STOOL THROUGHOUT THE COLON. Assessment & Plan - Diagnosis (1) Postprocedural partial intestinal obstruction Is this a current diagnosis for this admission?: Yes Plan: WBC13. Yesterday manual absolute neutrophils 17. K3.3. Gastrographin pending. [id number] with 20K. (2) Low back pain Qualifiers: Chronicity: chronic Back pain laterality: bilateral Sciatica presence: without sciatica Qualified Code(s): M54.5 - Low back pain; G89.29 - Other chronic pain; G89.29 - Other chronic pain Is this a current diagnosis for this admission?: Yes (3) Seizure Is this a current diagnosis for this admission?: Yes (4) Panic disorder without agoraphobia Is this a current diagnosis for this admission?: Yes - Inpatient Certification Medical Necessity: Significant Comorbidiites Make Outpatient Treatment Too Risky , Need Close Monitoring Due to Risk of Patient Decompensation, Need For IV Fluids, Need For Continuous Telemetry Monitoring, Need for Pain Control, Risk of Complication if Not Cared For in Hospital, Risk of Diagnosis Which Will Require Inpatient Eval/Care/Monitoring
--- NOTE | 2017-07-29 09:26 | PDOC PROGRESS REPORT ---
Subjective Progress Note for:: 07/29/17 Subjective:: Passing flatus but still having upper abdominal pain. Some nausea. No emesis. Reason For Visit: PARTIAL BOWEL OBSTRUCTION POST BYPASS Physical Exam Vital Signs: Temp Pulse Resp BP Pulse Ox 98.1 F 60 16 106/48 L 97 07/29/17 04:00 07/29/17 07:00 07/29/17 04:00 07/29/17 04:00 07/29/17 04:00 Intake & Output 07/28/17 07/29/17 07/30/17 06:59 06:59 06:59 Intake Total 2000 973 Output Total 150 Balance 1850 973 Weight 76.8 kg 77 kg General appearance: PRESENT: no acute distress, cooperative Respiratory exam: PRESENT: clear to auscultation maury Cardiovascular exam: PRESENT: RRR GI/Abdominal exam: PRESENT: other - Soft, flat, nondistended, mild epigastric abdominal tenderness. Results Laboratory Results: 07/29/17 04:08 07/29/17 04:08 07/29/17 07/29/17 04:08 04:08 WBC 13.2 H D RBC 3.56 L Hgb 11.2 L Hct 32.8 L MCV 92 MCH 31.5 MCHC 34.1 RDW 13.3 Plt Count 180 Seg Neutrophils % 82.6 H Lymphocytes % 9.8 L Monocytes % 6.1 Eosinophils % 1.3 Basophils % 0.2 Absolute Neutrophils 10.9 H Absolute Lymphocytes 1.3 Absolute Monocytes 0.8 Absolute Eosinophils 0.2 Absolute Basophils 0.0 Sodium 135.1 L Potassium 3.3 L D Chloride 100 Carbon Dioxide 29 Anion Gap 6 BUN 15 Creatinine 0.52 Est GFR ( Amer) > 60 Est GFR (Non-Af Amer) > 60 Glucose 95 Calcium 8.7 Impressions: Abdomen/Pelvis CT 07/27/17 00:00 IMPRESSION: 1. Ill-defined ground-glass infiltrates in the right lower lobe may suggest chronic interstitial changes, but may suggest acute infection. 2. Partial small bowel obstruction. 3. Diverticulosis coli. KUB X-Ray 07/27/17 00:00 IMPRESSION: NO RADIOGRAPHIC EVIDENCE FOR ACUTE ABDOMINAL DISEASE. SIDE PORT OF NASOGASTRIC TUBE LOCATED AT THE GE JUNCTION. RECOMMEND ADVANCING 2 TO 3 CM. Acute Abdomen Series 07/27/17 12:02 IMPRESSION: NO RADIOGRAPHIC EVIDENCE FOR ACUTE ABDOMINAL DISEASE. PROMINENT STOOL THROUGHOUT THE COLON. Assessment & Plan - Diagnosis (1) Abdominal pain Qualifiers: Abdominal location: epigastric Qualified Code(s): R10.13 - Epigastric pain Is this a current diagnosis for this admission?: Yes Plan: Passing gas now and abdomen is soft but she still has abdominal pain. Will obtain upper GI and small bowel follow series. If no significant abnormalities are found on this study, we will plan upper endoscopy to evaluate for possible marginal ulcer.
[2017-07-29] MEDS ORDERED: ONDANSETRON HCL INJ/PF 4 MG/2 ML SDV ONE (15:25)
[2017-07-29] MEDS ORDERED: ROCURONIUM BROMIDE INJ 50 MG/5 ML VIAL IV ONE (15:25)
[2017-07-29] MEDS ORDERED: DEXAMETHASONE SOD PHOSPHATE INJ 4 MG/1 ML VIAL ONE (15:25)
[2017-07-29] MEDS ORDERED: GLYCOPYRROLATE 1 MG/5 ML SYRINGE ONE (15:25)
[2017-07-29] MEDS ORDERED: NEOSTIGMINE METHYLSULFATE 10 MG/10 ML VIAL ONE (15:25)
[2017-07-29] MEDS ORDERED: LIDOCAINE 2% INJ-PF (20 MG/ML) 2 ML AMPUL ONE (15:25)
[2017-07-29] MEDS ORDERED: SUCCINYLCHOLINE CHLORIDE INJ 200 MG/10 ML VIAL ONE (15:25)
--- NOTE | 2017-07-29 16:16 | RADIOLOGY REPORT (SQ) ---
EXAM DESCRIPTION: UPPER GI/SM BOWEL COMPLETED DATE/TIME: 07/29/2017 3:58 pm REASON FOR STUDY: Abdominal pain with vomiting COMPARISON: CT abdomen and pelvis 07/27/2017 TECHNIQUE: Under fluoroscopic guidance, patient ingested thin barium. Fluoroscopic spot images and routine radiographic images acquired and stored on PACS. Following evaluation of esophagus and stomach, additional barium administered with serial delayed abd ominal radiographs until colonic identification. Fluoroscopic images recorded of the terminal ileum. 12 MM BARIUM TABLET GIVEN: No. Not given FLUOROSCOPY TIME: 3.3 minutes of fluoroscopy was used. 19 images saved to PACS. LIMITATIONS: None. FINDINGS: NEUROMUSCULAR COORDINATION OF SWALLOW: Normal. No aspiration. ESOPHAGEAL MOTILITY: Normal peristalsis. No esophageal spasm. ESOPHAGEAL MUCOSA: Normal mucosa without masses or ulceration. GASTRO-ESOPHAGEAL JUNCTION: No hiatal hernia is identified. There is gastroesophageal reflux. Patie nt is status post gastric bypass. Gastro jejunal anastomosis appears intact and patent that is sligh tly narrowed. PROXIMAL SMALL BOWEL: Postoperative changes from gastric bypass. There is dilatation of the jejunum from the gastric jejunal anastomosis to approximately 30 cm. At this point there is no extension of contrast even on delayed images out to 5 hours. JEJUNUM: Visualized jejunum shows dilatation and mid jejunal obstruction. ILEUM: Not visualized due to obstruction TERMINAL ILEUM AND ILEO-CECAL VALVE: Not visualized due to proximal small bowel obstruction PROXIMAL COLON: Scattered fecal material is seen. Contrast is not seen within the colon NON-GI TRACT STRUCTURES: Multiple surgical sutures and clips are seen in the abdomen especially the l eft upper quadrant in the area of the gastric bypass. Cholecystectomy clips are seen. Surgical hard norris is in the lower lumbar spine from previous fusion. OTHER: No other significant finding. IMPRESSION: FINDINGS CONSISTENT WITH A PROXIMAL SMALL BOWEL OBSTRUCTION APPROXIMATELY 30 CM FROM TH E GASTRO JEJUNAL ANASTOMOSIS. COMMENT: Findings were discussed with Dr. Frausto 08/08/2017 at 1600 hours. Quality ID [id number]: Final reports for procedures using fluoroscopy that document radiation exposure kim sanju, or exposure time and number of fluorographic images (if radiation exposure indices are not avail able) TECHNICAL DOCUMENTATION: JOB ID: [id number] [employer]- All Rights Reserved Reading location - IP/workstation name: [email or web address]
[2017-07-29] MEDS ORDERED: FENTANYL CITRATE INJ/PF 250 MCG/5 ML AMPULE ONE (19:51)
[2017-07-29] MEDS ORDERED: MIDAZOLAM 2 MG/2 ML INJ ONE (19:52)
[2017-07-29] MEDS ORDERED: PROPOFOL INJ 200 MG/20 ML VIAL IV ONE (19:52)
[2017-07-29] MEDS ORDERED: ACETAMINOPHEN 1,000 MG/100 ML RTUPB IV ONE (19:52)
[2017-07-29] MEDS ORDERED: HYDROMORPHONE HCL INJ/PF 2 MG/ML AMPULE ONE (19:52)
[2017-07-29] MEDS ORDERED: CEFAZOLIN INJ 1 GM VIAL ONE (20:46)
[2017-07-29] MEDS ORDERED: PROMETHAZINE HCL INJ 25 MG/1 ML VIAL IV PRN ×2 (21:28)
[2017-07-29] MEDS ORDERED: DIPHENHYDRAMINE HCL 50 MG/ML VIAL IV PRN (21:28)
[2017-07-29] MEDS ORDERED: MEPERIDINE HCL/PF INJ 25 MG/1 ML DISP.SYRIN IV PRN (21:28)
[2017-07-29] MEDS ORDERED: ONDANSETRON HCL INJ/PF 4 MG/2 ML SDV IV PRN (21:28)
[2017-07-29] MEDS ORDERED: FENTANYL CITRATE INJ/PF 100 MCG/2 ML AMPUL IV PRN ×3 (21:28)
[2017-07-29] MEDS ORDERED: BUPIVACAINE HCL 0.25 % INJ/PF (2.5 MG/1 ML) 30 ML VIAL ONE (21:48)
[2017-07-29] MEDS ORDERED: NORMAL SALINE 1000 ML 1,000 ML IV PRN (22:12)
--- NOTE | 2017-07-29 22:12 | Operative Report ---
Operative Report DATE OF SURGERY: 07/29/17 PREOPERATIVE DIAGNOSIS: Small bowel obstruction POSTOPERATIVE DIAGNOSIS: Small bowel obstruction OPERATION: Exploratory laparotomy with lysis of adhesions SURGEON: NYDIA BALBUENA ANESTHESIA: GA TISSUE REMOVED OR ALTERED: None COMPLICATIONS: None ESTIMATED BLOOD LOSS: Minimal INTRAOPERATIVE FINDINGS: Dense intra-abdominal adhesions with loop of bowel twisted and herniated via internal hernia. PROCEDURE: Informed consent was obtained. Patient was brought to the operating room and placed on the operating table in the supine position. After satisfactory induction of general anesthesia, patient's abdomen was prepped and draped in the usual sterile fashion. A upper midline incision was made and dissection was carried down. The fascia was sharply cut with a scalpel taking great care to avoid injury to the underlying structures. There were dense small bowel adhesions to the fascia that were taken down sharply. The incision had to be extended to the wendi-umbilical region to obtain adequate exposure. There was a loop of bowel going up toward the hiatus that was densely adhered to the surrounding structures which was left alone. This bowel was most certainly the Sadia limb going up to the gastric pouch. The remainder of the small bowel anterior abdominal wall adhesions were taken down. In the left upper quadrant there was a complex pretzel of dilated loops of bowel. The bowel in the lower and the right abdomen were all decompressed. Adhesions were lysed and the pretzel was untangled. And after doing so, the anatomy became very clear. The proximal jejunum coming from the ligament of Treitz was traced to its side-to- side anastomosis to the sadia limb. The small bowel distal to this region appeared all normal. Proximal to this anastomosis it appeared dilated. It appeared that in this region the twist and probable herniation occurred between the antecolic track of the Sadia limb and the transverse colon. After completely freeing the Sadia limb from the transverse colon the adhesions that created the small opening and thus the hernia had been completely lysed and this space was wide open. I believe that the bowel had twisted and herniated through a small opening created by the adhesions at this region. The proximal bowel also had a loop of bowel with very dense fibrous adhesion with no visible plane but this region of the dense adhesion did not appear to be a point of obstruction. With the dense fibrous adhesion I did not attempt to lyse this portion and risk almost certain enterotomy. With the obstruction relieved, the operation was concluded. The small bowel all appeared pink with no evidence of compromise. There were some small serosal tears but no evidence of enterotomies. Hemostasis appeared good although the dissection areas had some raw surfaces. Sponge needle and instrument counts were all correct. Seprafilm was placed over the small bowel. Fascia was closed with running PDS suture. Marcaine was injected in to the operative incision. Skin was closed with rancho. Patient tolerated procedure well with no apparent complications and was taken to the recovery area in stable condition.
[2017-07-29] MEDS ORDERED: FENTANYL CITRATE INJ/PF 100 MCG/2 ML AMPUL ONE (22:33)
[2017-07-29] MEDS: MORPHINE SULFATE 10 MG/ML INJ IV PRN (23:41)
[2017-07-30] MEDS: MORPHINE SULFATE 10 MG/ML INJ IV PRN ×5 (03:23→20:09)
[2017-07-30] MEDS: KETOROLAC TROMETHAMINE INJ/PF 30 MG/1 ML SDV IV PRN ×3 (04:08→21:52)
[2017-07-30] MEDS: LANSOPRAZOLE 30 MG TAB.RAP.DR PO SCH (04:08)
[2017-07-30 05:26] LABS: HEMATOCRIT 35.6 % (36.0-47.0); HEMOGLOBIN 12.1 g/dL (12.0-15.5); MEAN CORPUSCULAR HEMOGLOBIN 31.8 pg (27.0-33.4); MEAN CORPUSCULAR HGB CONC 34.2 g/dL (32.0-36.0); MEAN CORPUSCULAR VOLUME 93 fl (80-97); PLATELET COUNT 207 10^3/uL (150-450); RED BLOOD COUNT 3.81 10^6/uL (3.72-5.28); RED CELL DISTRIBUTION WIDTH 13.4 % (11.5-14.0); WHITE BLOOD COUNT 9.8 10^3/uL (4.0-10.5)
[2017-07-30 05:52] LABS: ABSOLUTE LYMPHOCYTES# (MANUAL) 0.4 10^3/uL (0.5-4.7); ABSOLUTE MONOCYTES # (MANUAL) 0.6 10^3/uL (0.1-1.4); ABSOLUTE NEUTROPHILS# (MANUAL) 8.8 10^3/uL (1.7-8.2); BASOPHILS % (MANUAL) 0 % (0-2); EOSINOPHILS % (MANUAL) 0 % (0-6); LYMPHOCYTES % (MANUAL) 4 % (13-45); MONOCYTES % (MANUAL) 6 % (3-13); SEGMENTED NEUTROPHILS % (MAN) 90 % (42-78); TOTAL CELLS COUNTED 100
[2017-07-30 05:53] LABS: PLATELET COMMENT ADEQUATE; TOXIC GRANULATION SLIGHT
[2017-07-30 05:58] LABS: ALANINE AMINOTRANSFERASE 279 U/L (9-52); ALBUMIN 3.3 g/dL (3.5-5.0); ALKALINE PHOSPHATASE 204 U/L (38-126); ANION GAP 9 (5-19); ASPARTATE AMINO TRANSFERASE 263 U/L (14-36); BILIRUBIN,DIRECT 0.5 mg/dL (0.0-0.4); BILIRUBIN,TOTAL 0.6 mg/dL (0.2-1.3); BLOOD UREA NITROGEN 6 mg/dL (7-20); CARBON DIOXIDE 27 mmol/L (22-30); CHLORIDE 107 mmol/L (98-107); GLUCOSE 139 mg/dL (75-110); SODIUM 143.3 mmol/L (137-145)
[2017-07-30 06:05] LABS: POTASSIUM 4.4 mmol/L (3.6-5.0)
--- NOTE | 2017-07-30 07:48 | PDOC PROGRESS REPORT ---
Subjective Progress Note for:: 07/30/17 Subjective:: Less LUQ pain. Drinking water. Wants coffee. Reason For Visit: PARTIAL BOWEL OBSTRUCTION POST BYPASS Physical Exam Vital Signs: Temp Pulse Resp BP Pulse Ox 98.7 F 66 16 125/64 95 07/30/17 04:30 07/30/17 04:30 07/30/17 04:30 07/30/17 04:30 07/30/17 04:30 Intake & Output 07/28/17 07/29/17 07/30/17 07:59 07:59 07:59 Intake Total 1999 973 4597 Output Total 150 2770 Balance 9688 484 2576 Weight 169 lb 5.04 oz 169 lb 12.095 oz 174 lb 2.643 oz General appearance: PRESENT: no acute distress Respiratory exam: PRESENT: clear to auscultation maury Cardiovascular exam: ABSENT: diastolic murmur, irregular rhythm, systolic murmur GI/Abdominal exam: PRESENT: hypoactive bowel sounds, tenderness - less LUQ. ABSENT: mass, organolmegaly Extremities exam: ABSENT: pedal edema Neurological exam: PRESENT: oriented to situation Psychiatric exam: PRESENT: appropriate affect Results Laboratory Results: 07/30/17 04:04 07/30/17 04:04 07/30/17 07/30/17 04:04 04:04 WBC 9.8 RBC 3.81 Hgb 12.1 Hct 35.6 L MCV 93 MCH 31.8 MCHC 34.2 RDW 13.4 Plt Count 207 Seg Neutrophils % Not Reportable Lymphocytes % Not Reportable Monocytes % Not Reportable Eosinophils % Not Reportable Basophils % Not Reportable Absolute Neutrophils Not Reportable Absolute Lymphocytes Not Reportable Absolute Monocytes Not Reportable Absolute Eosinophils Not Reportable Absolute Basophils Not Reportable Sodium 143.3 Potassium 4.4 D Chloride 107 Carbon Dioxide 27 Anion Gap 9 BUN 6 L Creatinine 0.47 L Est GFR ( Amer) > 60 Est GFR (Non-Af Amer) > 60 Glucose 139 H Calcium 9.0 Total Bilirubin 0.6 AST 263 H ALT 279 H Alkaline Phosphatase 204 H Total Protein 6.0 L Albumin 3.3 L Impressions: Abdomen/Pelvis CT 07/27/17 00:00 IMPRESSION: 1. Ill-defined ground-glass infiltrates in the right lower lobe may suggest chronic interstitial changes, but may suggest acute infection. 2. Partial small bowel obstruction. 3. Diverticulosis coli. KUB X-Ray 07/27/17 00:00 IMPRESSION: NO RADIOGRAPHIC EVIDENCE FOR ACUTE ABDOMINAL DISEASE. SIDE PORT OF NASOGASTRIC TUBE LOCATED AT THE GE JUNCTION. RECOMMEND ADVANCING 2 TO 3 CM. Acute Abdomen Series 07/27/17 12:02 IMPRESSION: NO RADIOGRAPHIC EVIDENCE FOR ACUTE ABDOMINAL DISEASE. PROMINENT STOOL THROUGHOUT THE COLON. Upper GI and Small Bowel X-Ray 07/29/17 09:01 IMPRESSION: FINDINGS CONSISTENT WITH A PROXIMAL SMALL BOWEL OBSTRUCTION APPROXIMATELY 30 CM FROM THE GASTRO JEJUNAL ANASTOMOSIS. Assessment & Plan - Diagnosis (1) Postprocedural partial intestinal obstruction Is this a current diagnosis for this admission?: Yes Plan: Feels better. ALT was 27 now 279. ? from surgery. ? clear liquids. (2) Low back pain Qualifiers: Chronicity: chronic Back pain laterality: bilateral Sciatica presence: without sciatica Qualified Code(s): M54.5 - Low back pain; G89.29 - Other chronic pain; G89.29 - Other chronic pain Is this a current diagnosis for this admission?: Yes (3) Seizure Is this a current diagnosis for this admission?: Yes (4) Panic disorder without agoraphobia Is this a current diagnosis for this admission?: Yes - Inpatient Certification Medical Necessity: Significant Comorbidiites Make Outpatient Treatment Too Risky , Need Close Monitoring Due to Risk of Patient Decompensation, Need For IV Fluids, Need For Continuous Telemetry Monitoring, Need for Pain Control, Need for Surgery, Risk of Complication if Not Cared For in Hospital, Risk of Diagnosis Which Will Require Inpatient Eval/Care/Monitoring
--- NOTE | 2017-07-30 12:14 | PDOC PROGRESS REPORT ---
Subjective Progress Note for:: 07/30/17 Subjective:: Feel much better. Preoperative abdominal pain is resolved. Burping but no emesis. Reason For Visit: PARTIAL BOWEL OBSTRUCTION POST BYPASS Physical Exam Vital Signs: Temp Pulse Resp BP Pulse Ox 98.8 F 66 17 144/66 H 97 07/30/17 07:56 07/30/17 07:56 07/30/17 07:56 07/30/17 07:56 07/30/17 07:56 Intake & Output 07/29/17 07/30/17 07/31/17 06:59 06:59 06:59 Intake Total 973 4597 Output Total 2770 Balance 973 1827 Weight 77 kg 79 kg General appearance: PRESENT: no acute distress, cooperative Respiratory exam: PRESENT: clear to auscultation maury Cardiovascular exam: PRESENT: RRR GI/Abdominal exam: PRESENT: other - Soft, nondistended, minimal tenderness to palpation. Decreased bowel sounds. Results Laboratory Results: 07/30/17 04:04 07/30/17 04:04 07/30/17 07/30/17 04:04 04:04 WBC 9.8 RBC 3.81 Hgb 12.1 Hct 35.6 L MCV 93 MCH 31.8 MCHC 34.2 RDW 13.4 Plt Count 207 Seg Neutrophils % Not Reportable Lymphocytes % Not Reportable Monocytes % Not Reportable Eosinophils % Not Reportable Basophils % Not Reportable Absolute Neutrophils Not Reportable Absolute Lymphocytes Not Reportable Absolute Monocytes Not Reportable Absolute Eosinophils Not Reportable Absolute Basophils Not Reportable Sodium 143.3 Potassium 4.4 D Chloride 107 Carbon Dioxide 27 Anion Gap 9 BUN 6 L Creatinine 0.47 L Est GFR ( Amer) > 60 Est GFR (Non-Af Amer) > 60 Glucose 139 H Calcium 9.0 Total Bilirubin 0.6 AST 263 H ALT 279 H Alkaline Phosphatase 204 H Total Protein 6.0 L Albumin 3.3 L Impressions: Abdomen/Pelvis CT 07/27/17 00:00 IMPRESSION: 1. Ill-defined ground-glass infiltrates in the right lower lobe may suggest chronic interstitial changes, but may suggest acute infection. 2. Partial small bowel obstruction. 3. Diverticulosis coli. KUB X-Ray 07/27/17 00:00 IMPRESSION: NO RADIOGRAPHIC EVIDENCE FOR ACUTE ABDOMINAL DISEASE. SIDE PORT OF NASOGASTRIC TUBE LOCATED AT THE GE JUNCTION. RECOMMEND ADVANCING 2 TO 3 CM. Acute Abdomen Series 07/27/17 12:02 IMPRESSION: NO RADIOGRAPHIC EVIDENCE FOR ACUTE ABDOMINAL DISEASE. PROMINENT STOOL THROUGHOUT THE COLON. Upper GI and Small Bowel X-Ray 07/29/17 09:01 IMPRESSION: FINDINGS CONSISTENT WITH A PROXIMAL SMALL BOWEL OBSTRUCTION APPROXIMATELY 30 CM FROM THE GASTRO JEJUNAL ANASTOMOSIS. Assessment & Plan - Diagnosis (1) Abdominal pain Qualifiers: Abdominal location: epigastric Qualified Code(s): R10.13 - Epigastric pain Is this a current diagnosis for this admission?: Yes (2) Small bowel obstruction Is this a current diagnosis for this admission?: Yes Plan: Status post lysis of adhesions. Patient looks remarkably well after her surgery. With the extent of her dissection I am reluctant to start p.o.'s 1 day postoperatively. Encourage activity. Unsure why her LFTs increased postoperatively. She is certainly not symptomatic. Will check repeat LFTs in the morning.
[2017-07-30] MEDS: DEXTROSE 5%-1/2 NORMAL SALINE 1,000 ML IV PRN ×2 (12:52→23:37)
[2017-07-31] MEDS: KETOROLAC TROMETHAMINE INJ/PF 30 MG/1 ML SDV IV PRN ×2 (05:58→20:23)
[2017-07-31] MEDS: LANSOPRAZOLE 30 MG TAB.RAP.DR PO SCH (06:00)
[2017-07-31 06:57] LABS: ALANINE AMINOTRANSFERASE 138 U/L (9-52); ALBUMIN 2.8 g/dL (3.5-5.0); ALKALINE PHOSPHATASE 120 U/L (38-126); ANION GAP 8 (5-19); ASPARTATE AMINO TRANSFERASE 54 U/L (14-36); BILIRUBIN,DIRECT 0.3 mg/dL (0.0-0.4); BILIRUBIN,TOTAL 0.4 mg/dL (0.2-1.3); BLOOD UREA NITROGEN 4 mg/dL (7-20); CALCIUM 8.7 mg/dL (8.4-10.2); CARBON DIOXIDE 27 mmol/L (22-30); CHLORIDE 107 mmol/L (98-107); GLUCOSE 99 mg/dL (75-110); SODIUM 141.7 mmol/L (137-145); TOTAL PROTEIN 5.1 g/dL (6.3-8.2)
--- NOTE | 2017-07-31 07:36 | PDOC PROGRESS REPORT ---
Subjective Progress Note for:: 07/31/17 Subjective:: Pain & nausea much better. Walking and passing gas. Reason For Visit: PARTIAL BOWEL OBSTRUCTION POST BYPASS Physical Exam Vital Signs: Temp Pulse Resp BP Pulse Ox 98.3 F 55 L 16 102/47 L 97 07/31/17 00:00 07/31/17 00:00 07/31/17 00:00 07/31/17 00:00 07/31/17 00:00 Intake & Output 07/29/17 07/30/17 07/31/17 07:59 07:59 07:59 Intake Total 973 4522 3558 Output Total 2770 1725 Balance 973 1827 1833 Weight 169 lb 12.095 oz 174 lb 2.643 oz 180 lb 12.465 oz General appearance: PRESENT: no acute distress Respiratory exam: PRESENT: clear to auscultation maury Cardiovascular exam: PRESENT: systolic murmur. ABSENT: diastolic murmur, irregular rhythm Murmur grade: 2 GI/Abdominal exam: PRESENT: tenderness - appropriate in wound. Bowel sounds.. ABSENT: diminished bowel sounds, guarding Extremities exam: ABSENT: pedal edema Neurological exam: PRESENT: oriented to situation Psychiatric exam: PRESENT: appropriate affect Results Laboratory Results: 07/30/17 04:04 07/31/17 06:05 07/31/17 06:05 Sodium 141.7 Potassium 4.0 Chloride 107 Carbon Dioxide 27 Anion Gap 8 BUN 4 L Creatinine 0.47 L Est GFR ( Amer) > 60 Est GFR (Non-Af Amer) > 60 Glucose 99 Calcium 8.7 Total Bilirubin 0.4 AST 54 H ALT 138 H Alkaline Phosphatase 120 Total Protein 5.1 L Albumin 2.8 L Impressions: Abdomen/Pelvis CT 07/27/17 00:00 IMPRESSION: 1. Ill-defined ground-glass infiltrates in the right lower lobe may suggest chronic interstitial changes, but may suggest acute infection. 2. Partial small bowel obstruction. 3. Diverticulosis coli. KUB X-Ray 07/27/17 00:00 IMPRESSION: NO RADIOGRAPHIC EVIDENCE FOR ACUTE ABDOMINAL DISEASE. SIDE PORT OF NASOGASTRIC TUBE LOCATED AT THE GE JUNCTION. RECOMMEND ADVANCING 2 TO 3 CM. Acute Abdomen Series 07/27/17 12:02 IMPRESSION: NO RADIOGRAPHIC EVIDENCE FOR ACUTE ABDOMINAL DISEASE. PROMINENT STOOL THROUGHOUT THE COLON. Upper GI and Small Bowel X-Ray 06/06/18 09:01 IMPRESSION: FINDINGS CONSISTENT WITH A PROXIMAL SMALL BOWEL OBSTRUCTION APPROXIMATELY 30 CM FROM THE GASTRO JEJUNAL ANASTOMOSIS. Assessment & Plan - Diagnosis (1) Postprocedural partial intestinal obstruction Is this a current diagnosis for this admission?: Yes Plan: [id number] down. Albumin 2.8. Clear liquids? (2) Low back pain Qualifiers: Chronicity: chronic Back pain laterality: bilateral Sciatica presence: without sciatica Qualified Code(s): M54.5 - Low back pain; G89.29 - Other chronic pain; G89.29 - Other chronic pain Is this a current diagnosis for this admission?: Yes (3) Seizure Is this a current diagnosis for this admission?: Yes (4) Panic disorder without agoraphobia Is this a current diagnosis for this admission?: Yes - Inpatient Certification Medical Necessity: Significant Comorbidiites Make Outpatient Treatment Too Risky , Need Close Monitoring Due to Risk of Patient Decompensation, Need For IV Fluids, Need For Continuous Telemetry Monitoring, Need for Pain Control, Risk of Complication if Not Cared For in Hospital, Risk of Diagnosis Which Will Require Inpatient Eval/Care/Monitoring
[2017-07-31] MEDS: MORPHINE SULFATE 10 MG/ML INJ IV PRN ×2 (08:21→14:26)
--- NOTE | 2017-07-31 10:31 | PDOC PROGRESS REPORT ---
Subjective Progress Note for:: 07/31/17 Subjective:: Patient is postoperative day 2 status post exploratory laparotomy, lysis of adhesion, patient doing well no complications voiding without Riggs catheter. She is thirsty. Reason For Visit: PARTIAL BOWEL OBSTRUCTION POST BYPASS Physical Exam Vital Signs: Temp Pulse Resp BP Pulse Ox 98.0 F 62 17 91/57 L 94 07/31/17 07:20 07/31/17 07:20 07/31/17 07:20 07/31/17 07:20 07/31/17 07:20 Intake & Output 07/30/17 07/31/17 08/01/17 06:59 06:59 06:59 Intake Total 4597 3558 Output Total 2770 1725 Balance 1827 1833 Weight 79 kg 82 kg General appearance: PRESENT: no acute distress GI/Abdominal exam: PRESENT: other - Midline dressing well-healed; no drainage; no operative drain; no distention Results Laboratory Results: 07/30/17 04:04 07/31/17 06:05 07/31/17 06:05 Sodium 141.7 Potassium 4.0 Chloride 107 Carbon Dioxide 27 Anion Gap 8 BUN 4 L Creatinine 0.47 L Est GFR ( Amer) > 60 Est GFR (Non-Af Amer) > 60 Glucose 99 Calcium 8.7 Total Bilirubin 0.4 AST 54 H ALT 138 H Alkaline Phosphatase 120 Total Protein 5.1 L Albumin 2.8 L Impressions: Abdomen/Pelvis CT 07/27/17 00:00 IMPRESSION: 1. Ill-defined ground-glass infiltrates in the right lower lobe may suggest chronic interstitial changes, but may suggest acute infection. 2. Partial small bowel obstruction. 3. Diverticulosis coli. KUB X-Ray 07/27/17 00:00 IMPRESSION: NO RADIOGRAPHIC EVIDENCE FOR ACUTE ABDOMINAL DISEASE. SIDE PORT OF NASOGASTRIC TUBE LOCATED AT THE GE JUNCTION. RECOMMEND ADVANCING 2 TO 3 CM. Acute Abdomen Series 07/27/17 12:02 IMPRESSION: NO RADIOGRAPHIC EVIDENCE FOR ACUTE ABDOMINAL DISEASE. PROMINENT STOOL THROUGHOUT THE COLON. Upper GI and Small Bowel X-Ray 07/29/17 09:01 IMPRESSION: FINDINGS CONSISTENT WITH A PROXIMAL SMALL BOWEL OBSTRUCTION APPROXIMATELY 30 CM FROM THE GASTRO JEJUNAL ANASTOMOSIS. Assessment & Plan - Diagnosis (1) Partial small bowel obstruction Is this a current diagnosis for this admission?: Yes Plan: Patient is now 2 days status post exploratory laparotomy, lysis of adhesion, open, for bowel obstruction, complete, doing well with successful return of bowel function Recommendations: 1. Start clear liquids 2. Saline lock IV 3. Switch to p.o. pain medication; reduce narcotic use 4. Anticipate discharge home in the next 24-36 hours. - Time Time Spent with patient: 15-24 minutes Smoking Cessation Education: over 10 minutes
[2017-07-31] MEDS: OXYCODONE-ACETAMINOPHEN 5-325 MG TABLET PO PRN ×3 (11:26→23:36)
[2017-07-31] MEDS: DOCUSATE SODIUM 100 MG CAPSULE PO SCH (17:57)
[2017-08-01] MEDS: LANSOPRAZOLE 30 MG TAB.RAP.DR PO SCH (05:06)
[2017-08-01] MEDS: OXYCODONE-ACETAMINOPHEN 5-325 MG TABLET PO PRN ×4 (05:06→23:34)
[2017-08-01] MEDS: KETOROLAC TROMETHAMINE INJ/PF 30 MG/1 ML SDV IV PRN ×2 (08:15→15:10)
[2017-08-01] MEDS: ONDANSETRON HCL INJ/PF 4 MG/2 ML SDV IV PRN (10:15)
[2017-08-01] MEDS: DOCUSATE SODIUM 100 MG CAPSULE PO SCH ×2 (10:15→18:00)
--- NOTE | 2017-08-01 10:17 | PDOC PROGRESS REPORT ---
Subjective Progress Note for:: 08/01/17 Subjective:: tolerating full liquids. Percocet works. Reason For Visit: PARTIAL BOWEL OBSTRUCTION POST BYPASS Physical Exam Vital Signs: Temp Pulse Resp BP Pulse Ox 98.3 F 55 L 15 124/68 96 08/01/17 07:06 08/01/17 07:06 08/01/17 07:06 08/01/17 07:06 08/01/17 07:06 Intake & Output 07/31/17 08/01/17 08/02/17 07:59 07:59 07:59 Intake Total 3558 1726 Output Total 1725 1150 Balance 1833 576 Weight 180 lb 12.465 oz 173 lb 8.061 oz General appearance: PRESENT: no acute distress Respiratory exam: PRESENT: clear to auscultation maury Cardiovascular exam: ABSENT: diastolic murmur, irregular rhythm, systolic murmur Murmur grade: 2 GI/Abdominal exam: ABSENT: mass, organolmegaly, tenderness Neurological exam: ABSENT: oriented to situation Psychiatric exam: ABSENT: appropriate affect Results Laboratory Results: 07/30/17 04:04 07/31/17 06:05 Impressions: Abdomen/Pelvis CT 07/27/17 00:00 IMPRESSION: 1. Ill-defined ground-glass infiltrates in the right lower lobe may suggest chronic interstitial changes, but may suggest acute infection. 2. Partial small bowel obstruction. 3. Diverticulosis coli. KUB X-Ray 07/27/17 00:00 IMPRESSION: NO RADIOGRAPHIC EVIDENCE FOR ACUTE ABDOMINAL DISEASE. SIDE PORT OF NASOGASTRIC TUBE LOCATED AT THE GE JUNCTION. RECOMMEND ADVANCING 2 TO 3 CM. Acute Abdomen Series 07/27/17 12:02 IMPRESSION: NO RADIOGRAPHIC EVIDENCE FOR ACUTE ABDOMINAL DISEASE. PROMINENT STOOL THROUGHOUT THE COLON. Upper GI and Small Bowel X-Ray 07/29/17 09:01 IMPRESSION: FINDINGS CONSISTENT WITH A PROXIMAL SMALL BOWEL OBSTRUCTION APPROXIMATELY 30 CM FROM THE GASTRO JEJUNAL ANASTOMOSIS. Assessment & Plan - Diagnosis (1) Postprocedural partial intestinal obstruction Is this a current diagnosis for this admission?: Yes Plan: Regular diet tomorrow?. (2) Low back pain Qualifiers: Chronicity: chronic Back pain laterality: bilateral Sciatica presence: without sciatica Qualified Code(s): M54.5 - Low back pain; G89.29 - Other chronic pain; G89.29 - Other chronic pain Is this a current diagnosis for this admission?: Yes (3) Seizure Is this a current diagnosis for this admission?: Yes (4) Panic disorder without agoraphobia Is this a current diagnosis for this admission?: Yes - Inpatient Certification Medical Necessity: Significant Comorbidiites Make Outpatient Treatment Too Risky , Need Close Monitoring Due to Risk of Patient Decompensation, Need For Continuous Telemetry Monitoring, Need for Pain Control, Risk of Complication if Not Cared For in Hospital, Risk of Diagnosis Which Will Require Inpatient Eval/ Care/Monitoring
[2017-08-01] MEDS ORDERED: SIMETHICONE 80 MG TAB.CHEW PO PRN (15:31)
--- NOTE | 2017-08-01 19:55 | PDOC PROGRESS REPORT ---
Subjective Reason For Visit: PARTIAL BOWEL OBSTRUCTION POST BYPASS Physical Exam Vital Signs: Temp Pulse Resp BP Pulse Ox 98.2 F 66 16 118/68 99 08/01/17 14:36 08/01/17 14:36 08/01/17 14:36 08/01/17 14:36 08/01/17 14:36 Intake & Output 07/31/17 08/01/17 08/02/17 06:59 06:59 06:59 Intake Total 3558 1726 814 Output Total 1725 1150 875 Balance 1833 576 -61 Weight 82 kg 78.7 kg Results Laboratory Results: 07/30/17 04:04 07/31/17 06:05 Impressions: Abdomen/Pelvis CT 07/27/17 00:00 IMPRESSION: 1. Ill-defined ground-glass infiltrates in the right lower lobe may suggest chronic interstitial changes, but may suggest acute infection. 2. Partial small bowel obstruction. 3. Diverticulosis coli. KUB X-Ray 07/27/17 00:00 IMPRESSION: NO RADIOGRAPHIC EVIDENCE FOR ACUTE ABDOMINAL DISEASE. SIDE PORT OF NASOGASTRIC TUBE LOCATED AT THE GE JUNCTION. RECOMMEND ADVANCING 2 TO 3 CM. Acute Abdomen Series 07/27/17 12:02 IMPRESSION: NO RADIOGRAPHIC EVIDENCE FOR ACUTE ABDOMINAL DISEASE. PROMINENT STOOL THROUGHOUT THE COLON. Upper GI and Small Bowel X-Ray 07/29/17 09:01 IMPRESSION: FINDINGS CONSISTENT WITH A PROXIMAL SMALL BOWEL OBSTRUCTION APPROXIMATELY 30 CM FROM THE GASTRO JEJUNAL ANASTOMOSIS. Assessment & Plan - Diagnosis (1) Complications of gastric bypass surgery Is this a current diagnosis for this admission?: Yes (2) Partial small bowel obstruction Is this a current diagnosis for this admission?: Yes - Plan Summary Plan Summary: This is a 61-year-old female status post laparotomy for a small bowel obstruction. She is passing gas and tolerating liquids. I will advance her diet today. If she can tolerate a regular diet, maintain adequate pain control on oral medications, and ambulate regularly, she may be discharged tomorrow. We will continue to follow with you. Hopefully, home tomorrow.
[2017-08-01] MEDS ORDERED: DOCUSATE SODIUM 100 MG CAPSULE PO ONE (21:00)
[2017-08-02] MEDS: LANSOPRAZOLE 30 MG TAB.RAP.DR PO SCH (05:51)
--- NOTE | 2017-08-02 06:52 | PDOC DISCHARGE SUMMARY ---
General - Admit/Disc Date/PCP Admission Date/Primary Care Provider: 07/27/17 17:16 LIA WILKINS MD Discharge Date: 08/02/17 - Discharge Diagnosis (1) Postprocedural partial intestinal obstruction Is this a current diagnosis for this admission?: Yes (2) Low back pain Is this a current diagnosis for this admission?: Yes (3) Seizure Is this a current diagnosis for this admission?: Yes (4) Panic disorder without agoraphobia Is this a current diagnosis for this admission?: Yes - Additional Information Resuscitation Status: Full Code Discharge Diet: Regular Discharge Activity: Activity As Tolerated Home Medications: Celecoxib [Celebrex 100 mg Capsule] 100 mg PO Q12 07/27/17 Esomeprazole Mag Trihydrate [Nexium] 40 mg PO DAILY 07/27/17 Hydrocodone/Acetaminophen [[place] 7.5-325 Tablet] 1 tab PO Q6 07/27/17 History of Present Illness History of Present Illness: ESTELA RIVERA is a 61 year old female with 1981 gastroplasty for weight loss. Hospital Course Hospital Course: At surgery she was found to have dense adhesions around loopes of bowel. The mid jejunal obstruction was relieved. Post op she had relief of pain and vomiting. She tolerated regular diet yesterday and is stooling. Physical Exam Vital Signs: Temp Pulse Resp BP Pulse Ox 99.1 F 77 16 138/68 H 97 08/01/17 22:58 08/01/17 22:58 08/01/17 22:58 08/01/17 22:58 08/01/17 22:58 Intake & Output 07/31/17 08/01/17 08/02/17 07:59 07:59 07:59 Intake Total 3558 1726 1554 Output Total 1725 1150 875 Balance 1833 576 679 Weight 180 lb 12.465 oz 173 lb 8.061 oz 170 lb 10.205 oz General appearance: PRESENT: no acute distress Respiratory exam: PRESENT: clear to auscultation maury Cardiovascular exam: ABSENT: diastolic murmur, irregular rhythm, systolic murmur Murmur grade: 2 GI/Abdominal exam: PRESENT: tenderness - minimal around wound. ABSENT: mass, organolmegaly Extremities exam: ABSENT: pedal edema Neurological exam: PRESENT: oriented to situation Psychiatric exam: PRESENT: appropriate affect Results Laboratory Results: 07/30/17 04:04 07/31/17 06:05 Labs- Last Values WBC 9.8 10^3/uL (4.0-10.5) 07/30/17 04:04 RBC 3.81 10^6/uL (3.72-5.28) 07/30/17 04:04 Hgb 12.1 g/dL (12.0-15.5) 07/30/17 04:04 Hct 35.6 % (36.0-47.0) L 07/30/17 04:04 MCV 93 fl (80-97) 07/30/17 04:04 MCH 31.8 pg (27.0-33.4) 07/30/17 04:04 MCHC 34.2 g/dL (32.0-36.0) 07/30/17 04:04 RDW 13.4 % (11.5-14.0) 07/30/17 04:04 Plt Count 207 10^3/uL (150-450) 07/30/17 04:04 Total Counted 100 07/30/17 04:04 Seg Neutrophils % Not Reportable 07/30/17 04:04 Seg Neuts % (Manual) 90 % (42-78) H 07/30/17 04:04 Band Neutrophils % 6 % (3-5) H 07/27/17 11:47 Lymphocytes % Not Reportable 07/30/17 04:04 Lymphocytes % (Manual) 4 % (13-45) L 07/30/17 04:04 Monocytes % Not Reportable 07/30/17 04:04 Monocytes % (Manual) 6 % (3-13) 07/30/17 04:04 Eosinophils % Not Reportable 07/30/17 04:04 Eosinophils % (Manual) 0 % (0-6) 07/30/17 04:04 Basophils % Not Reportable 07/30/17 04:04 Basophils % (Manual) 0 % (0-2) 07/30/17 04:04 Absolute Neutrophils Not Reportable 07/30/17 04:04 Abs Neuts (Manual) 8.8 10^3/uL (1.7-8.2) H 07/30/17 04:04 Absolute Lymphocytes Not Reportable 07/30/17 04:04 Abs Lymphs (Manual) 0.4 10^3/uL (0.5-4.7) L 07/30/17 04:04 Absolute Monocytes Not Reportable 07/30/17 04:04 Abs Monocytes (Manual) 0.6 10^3/uL (0.1-1.4) 07/30/17 04:04 Absolute Eosinophils Not Reportable 07/30/17 04:04 Absolute Eos (Manual) 0.0 10^3/uL (0.0-0.6) 07/30/17 04:04 Absolute Basophils Not Reportable 07/30/17 04:04 Abs Basophils (Manual) 0.0 10^3/uL (0.0-0.2) 07/30/17 04:04 Toxic Granulation SLIGHT 07/30/17 04:04 Platelet Comment ADEQUATE 07/30/17 04:04 RBC Morph Comment NORMO-CYTIC/CHROMIC 07/27/17 11:47 Sodium 141.7 mmol/L (137-145) 07/31/17 06:05 Potassium 4.0 mmol/L (3.6-5.0) 07/31/17 06:05 Chloride 107 mmol/L (98-107) 07/31/17 06:05 Carbon Dioxide 27 mmol/L (22-30) 07/31/17 06:05 Anion Gap 8 (5-19) 07/31/17 06:05 BUN 4 mg/dL (7-20) L 07/31/17 06:05 Creatinine 0.47 mg/dL (0.52-1.25) L 07/31/17 06:05 Est GFR ( Amer) > 60 (>60) 07/31/17 06:05 Est GFR (Non-Af Amer) > 60 (>60) 07/31/17 06:05 Glucose 99 mg/dL (75-110) 07/31/17 06:05 Lactic Acid 1.2 mmol/L (0.7-2.1) 07/27/17 11:47 Calcium 8.7 mg/dL (8.4-10.2) 07/31/17 06:05 Total Bilirubin 0.4 mg/dL (0.2-1.3) 07/31/17 06:05 Direct Bilirubin 0.3 mg/dL (0.0-0.4) 07/31/17 06:05 Neonat Total Bilirubin Not Reportable 07/31/17 06:05 Neonat Direct Bilirubin Not Reportable 07/31/17 06:05 Neonat Indirect Bili Not Reportable 07/31/17 06:05 AST 54 U/L (14-36) H 07/31/17 06:05 ALT 138 U/L (9-52) H 07/31/17 06:05 Alkaline Phosphatase 120 U/L (38-126) 07/31/17 06:05 Total Protein 5.1 g/dL (6.3-8.2) L 07/31/17 06:05 Albumin 2.8 g/dL (3.5-5.0) L 07/31/17 06:05 Lipase 136.2 U/L (23-300) 07/27/17 11:47 Urine Color YELLOW 07/27/17 13:28 Urine Appearance SLIGHTLY-CLOUDY 07/27/17 13:28 Urine pH 5.0 (5.0-9.0) 07/27/17 13:28 Ur Specific [place] 1.021 07/27/17 13:28 Urine Protein NEGATIVE mg/dL (NEGATIVE) 07/27/17 13:28 Urine Glucose (UA) NEGATIVE mg/dL (NEGATIVE) 07/27/17 13:28 Urine Ketones TRACE mg/dL (NEGATIVE) H 07/27/17 13:28 Urine Blood MODERATE (NEGATIVE) H 07/27/17 13:28 Urine Nitrite NEGATIVE (NEGATIVE) 07/27/17 13:28 Urine Bilirubin SMALL (NEGATIVE) H 07/27/17 13:28 Urine Urobilinogen 4.0 mg/dL (<2.0) H 07/27/17 13:28 Ur Leukocyte Esterase TRACE (NEGATIVE) H 07/27/17 13:28 Urine WBC (Auto) 6 /HPF 07/27/17 13:28 Urine RBC (Auto) 16 /HPF 07/27/17 13:28 U Hyaline Cast (Auto) 12 /LPF 07/27/17 13:28 Urine Bacteria (Auto) TRACE /HPF 07/27/17 13:28 Squamous Epi Cells Auto 2 /HPF 07/27/17 13:28 Urine Mucus (Auto) FEW /LPF 07/27/17 13:28 Urine Ascorbic Acid NEGATIVE (NEGATIVE) 07/27/17 13:28 Impressions: Abdomen/Pelvis CT 07/27/17 00:00 IMPRESSION: 1. Ill-defined ground-glass infiltrates in the right lower lobe may suggest chronic interstitial changes, but may suggest acute infection. 2. Partial small bowel obstruction. 3. Diverticulosis coli. KUB X-Ray 07/27/17 00:00 IMPRESSION: NO RADIOGRAPHIC EVIDENCE FOR ACUTE ABDOMINAL DISEASE. SIDE PORT OF NASOGASTRIC TUBE LOCATED AT THE GE JUNCTION. RECOMMEND ADVANCING 2 TO 3 CM. Acute Abdomen Series 07/27/17 12:02 IMPRESSION: NO RADIOGRAPHIC EVIDENCE FOR ACUTE ABDOMINAL DISEASE. PROMINENT STOOL THROUGHOUT THE COLON. Upper GI and Small Bowel X-Ray 07/29/17 09:01 IMPRESSION: FINDINGS CONSISTENT WITH A PROXIMAL SMALL BOWEL OBSTRUCTION APPROXIMATELY 30 CM FROM THE GASTRO JEJUNAL ANASTOMOSIS. Qualifiers - * PATIENT BEING DISCHARGED WITH ANY OF THE FOLLOWING DIAGNOSIS: No Plan Discharge Plan: home. Ov 8d me. 10d surgery. Time Spent: Less than 30 Minutes
[2017-08-02] MEDS: OXYCODONE-ACETAMINOPHEN 5-325 MG TABLET PO PRN ×2 (06:57→13:06)
[2017-08-02] MEDS ORDERED: CELECOXIB 100 MG CAPSULE PO SCH (10:00)
[2017-08-02] MEDS ORDERED: DOCUSATE SODIUM 100 MG CAPSULE PO SCH (10:00)
--- NOTE | 2017-08-02 11:32 | PDOC PROGRESS REPORT ---
Subjective Reason For Visit: PARTIAL BOWEL OBSTRUCTION POST BYPASS Physical Exam Vital Signs: Temp Pulse Resp BP Pulse Ox 99.1 F 77 16 138/68 H 97 08/01/17 22:58 08/01/17 22:58 08/01/17 22:58 08/01/17 22:58 08/01/17 22:58 Intake & Output 08/01/17 08/02/17 08/03/17 06:59 06:59 06:59 Intake Total 1726 1554 Output Total 1150 875 Balance 576 679 Weight 78.7 kg 77.4 kg Results Laboratory Results: 07/30/17 04:04 07/31/17 06:05 Impressions: Abdomen/Pelvis CT 07/27/17 00:00 IMPRESSION: 1. Ill-defined ground-glass infiltrates in the right lower lobe may suggest chronic interstitial changes, but may suggest acute infection. 2. Partial small bowel obstruction. 3. Diverticulosis coli. KUB X-Ray 07/27/17 00:00 IMPRESSION: NO RADIOGRAPHIC EVIDENCE FOR ACUTE ABDOMINAL DISEASE. SIDE PORT OF NASOGASTRIC TUBE LOCATED AT THE GE JUNCTION. RECOMMEND ADVANCING 2 TO 3 CM. Acute Abdomen Series 07/27/17 12:02 IMPRESSION: NO RADIOGRAPHIC EVIDENCE FOR ACUTE ABDOMINAL DISEASE. PROMINENT STOOL THROUGHOUT THE COLON. Upper GI and Small Bowel X-Ray 07/29/17 09:01 IMPRESSION: FINDINGS CONSISTENT WITH A PROXIMAL SMALL BOWEL OBSTRUCTION APPROXIMATELY 30 CM FROM THE GASTRO JEJUNAL ANASTOMOSIS. Assessment & Plan - Diagnosis (1) Complications of gastric bypass surgery Is this a current diagnosis for this admission?: Yes (2) Partial small bowel obstruction Is this a current diagnosis for this admission?: Yes - Plan Summary Plan Summary: Doing well. Home today. No lifting >10 lbs x 6 weeks after surgery. OK to shower. F/u with me on 08/10.
[2017-08-02 12:57] VITALS: BP 102/47
== END 2017-08-02 13:18 | disposition home or self-care (01) | DRG 336 ==
LOC: ER 10:44 → EH 17:16 → 4N 19:30
PROVIDERS: ADMIT Family Medicine; ATTEND Family Medicine
PROC: 0DN80ZZ Release Small Intestine, Open Approach (ICD-10-PCS; principal; 2017-07-29 19:00)
DX: K91.31 Postprocedural partial intestinal obstruction (principal); K95.89 Other complications of other bariatric procedure; I10 Essential (primary) hypertension; K21.9 Gastro-esophageal reflux disease without esophagitis; M54.5 Low back pain; G89.29 Other chronic pain; G40.909 Epilepsy, unspecified, not intractable, without status epilepticus; F41.0 Panic disorder [episodic paroxysmal anxiety]; M95.9 Acquired deformity of musculoskeletal system, unspecified; Z98.84 Bariatric surgery status
CPT/HCPCS: 36415; 74018; 74022; 74177; 74249; 790; 80048; 80053; 81001; 83605; 83690; 85025; 93005; 93010; 96361; 96374; 96375; 99285; J0131; J0330; J0690; J1100; J1170; J1885; J2250; J2270; J2405; J2704; J3010; J3480; J3490; J7030; J7120

== ENCOUNTER 2018-02-20 14:22 | Emergency (ER) | payer MEDICARE, OTHER ==
[2018-02-20] MEDS ORDERED: ASPIRIN 81 MG TABLET, CHEWABLE PO ONE (14:48)
[2018-02-20] MEDS ORDERED: METOCLOPRAMIDE HCL INJ/PF 10 MG/2 ML SDV IV ONE (14:57)
[2018-02-20] MEDS ORDERED: DIPHENHYDRAMINE HCL 50 MG/ML VIAL IV ONE (14:57)
--- NOTE | 2018-02-20 15:05 | ER Document Report ---
ED General - General Stated Complaint: POSSIBLE SYNCOPE Time Seen by Provider: 02/20/18 14:37 Mode of Arrival: Medic Information source: Patient, Relative, Emergency Med Personnel Notes: 62-year-old female with hypertension, migraine headaches, chronic back pain presents after an episode of unresponsiveness that was witnessed by the patient's daughter. Daughter is at the bedside and states that she got a phone call from her mother saying "help me". When she went downstairs she found her slumped over with her head bent to the side not speaking. At one point they believe that the patient stopped breathing and called 911. Upon EMS arrival they state that patient was initially confused but quickly came returned to baseline. Patient reports that she has had one seizure approximately 9 months ago after stopping tramadol for back pain after using it for over a decade. Patient states she has not had any seizures since then. Today she states that just prior to the episode she had palpitations, began sweating and that is the last thing she remembered. Patient may currently complaining of a headache. She denies visual changes, nausea, vomiting, chest pain, shortness of breath, abdominal pain. She states that she has otherwise been well. She denies any new medications. TRAVEL OUTSIDE OF THE [place] IN LAST 30 DAYS: No - HPI Onset: Just prior to arrival Onset/Duration: Sudden Quality of pain: Throbbing Severity: Mild Associated symptoms: Headache, Sweating, Other - Palpitations. denies: Body/muscle aches, Chest pain, Nonproductive cough, Productive cough, Fever, Nausea, Vomiting, Shortness of breath Exacerbated by: Denies Relieved by: Denies Similar symptoms previously: Yes Recently seen / treated by doctor: No - Related Data Allergies/Adverse Reactions: codeine Allergy (Verified 07/27/17 10:51) Past Medical History - General Information source: Patient, Emergency Med Personnel, [facility] Records - Social History Smoking Status: Former Smoker Frequency of alcohol use: None Drug Abuse: None Lives with: Family Family History: Malignancy, Other - father alcoholic - Past Medical History Cardiac Medical History: Reports: Hx Hypertension Neurological Medical History: Reports: Hx Migraine, Hx Seizures Renal/ Medical History: Denies: Hx Peritoneal Dialysis Malignancy Medical History: Reports: Hx Ovarian Cancer - 1980 GI Medical History: Reports: Hx Gastroesophageal Reflux Disease Musculoskeletal Medical History: Reports Hx Arthritis - low back pain, Reports Hx Musculoskeletal Deformity, Reports Hx Musculoskeletal Trauma Psychiatric Medical History: Reports: Hx Depression Past Surgical History: Reports: Hx Appendectomy, Hx Cholecystectomy, Hx Hysterectomy, Hx Orthopedic Surgery - laminectomy, Other - gastroplastyComment Only: Hx Vascular Surgery - Gastroplasty Review of Systems - Review of Systems Notes: REVIEW OF SYSTEMS: CONSTITUTIONAL : Denies fever, chills, . Denies recent illness. Denies weight loss, recent hospitalizations. EENT: Denies visual changes, eye pain. Denies sore throat, oral lesions, difficulty swallowing. CARDIOVASCULAR: Denies chest pain. Denies lower extremity edema. RESPIRATORY: Denies cough. Denies shortness of breath, wheezing. GASTROINTESTINAL: Denies abdominal pain or distention. Denies nausea, vomiting, or diarrhea. Denies blood in vomitus, stools, or per rectum. Denies black, tarry stools. Denies constipation. GENITOURINARY: Denies difficulty urinating, painful urination, frequency, blood in urine, or vaginal discharge. MUSCULOSKELETAL: Denies back or neck pain or stiffness. Denies joint pain or swelling. SKIN: Denies rash, lesions or sores. HEMATOLOGIC : Denies easy bruising or bleeding. LYMPHATIC: Denies swollen glands. NEUROLOGICAL: Denies dizziness or lightheadedness. Denies weakness or paralysis. Denies problems difficulty with ambulation, slurred speech. Denies sensory loss, numbness, or tingling. PSYCHIATRIC: Denies anxiety or stress. Denies depression, suicidal ideation, or homicidal ideation. Denies visual or auditory hallucinations. Physical Exam - Vital signs Vitals: Temp 98.8 F 02/20/18 14:30 Interpretation: No: Tachycardic, Hypoxic, Febrile - Notes Notes: PHYSICAL EXAMINATION: GENERAL: Well-appearing, well-nourished and in no acute distress. HEAD: Atraumatic, normocephalic. EYES: Pupils equal round and reactive to light, extraocular movements intact, conjunctiva are normal. ENT: Nares patent, oropharynx clear without exudates. Moist mucous membranes. NECK: Normal range of motion, supple without lymphadenopathy LUNGS: Breath sounds clear to auscultation bilaterally and equal. No wheezes rales or rhonchi. HEART: Regular rate and rhythm without murmurs ABDOMEN: Soft, nontender, nondistended abdomen. No guarding, no rebound. No masses appreciated. Female : deferred Musculoskeletal: Normal range of motion, no pitting or edema. No cyanosis. NEUROLOGICAL: Cranial nerves grossly intact. Normal speech, normal gait. Normal sensory, motor exams. NIH-0 PSYCH: Normal mood, normal affect. SKIN: Warm, Dry, normal turgor, no rashes or lesions noted. Course - Re-evaluation Re-evalutation: 02/20/18 22:24 Laboratory 02/20/18 02/20/18 02/20/18 14:10 14:10 14:10 WBC 6.1 RBC 4.58 Hgb 13.9 Hct 41.5 MCV 91 MCH 30.3 MCHC 33.4 RDW 14.4 H Plt Count 283 Seg Neutrophils % 49.7 Lymphocytes % 39.4 Monocytes % 8.6 Eosinophils % 1.8 Basophils % 0.5 Absolute Neutrophils 3.0 Absolute Lymphocytes 2.4 Absolute Monocytes 0.5 Absolute Eosinophils 0.1 Absolute Basophils 0.0 D-Dimer Sodium 138.6 Potassium 4.9 Chloride 100 Carbon Dioxide 29 Anion Gap 10 BUN 15 Creatinine 0.63 Est GFR ( Amer) > 60 Est GFR (Non-Af Amer) > 60 Glucose 98 Calcium 9.7 Magnesium 2.2 Total Bilirubin 0.4 Direct Bilirubin 0.3 Neonat Total Bilirubin Not Reportable Neonat Direct Bilirubin Not Reportable Neonat Indirect Bili Not Reportable AST 35 ALT 20 Alkaline Phosphatase 90 Creatine Kinase 79 CK-MB (CK-2) 0.31 Troponin I < 0.012 Total Protein 7.7 Albumin 4.5 TSH Free T4 Free T3 pg/mL 02/20/18 02/20/18 02/20/18 14:10 14:10 18:23 WBC RBC Hgb Hct MCV MCH MCHC RDW Plt Count Seg Neutrophils % Lymphocytes % Monocytes % Eosinophils % Basophils % Absolute Neutrophils Absolute Lymphocytes Absolute Monocytes Absolute Eosinophils Absolute Basophils D-Dimer 0.42 Sodium Potassium Chloride Carbon Dioxide Anion Gap BUN Creatinine Est GFR ( Amer) Est GFR (Non-Af Amer) Glucose Calcium Magnesium Total Bilirubin Direct Bilirubin Neonat Total Bilirubin Neonat Direct Bilirubin Neonat Indirect Bili AST ALT Alkaline Phosphatase Creatine Kinase CK-MB (CK-2) Troponin I 0.012 Total Protein Albumin TSH 5.12 H Free T4 0.88 Free T3 pg/mL 2.59 L Chest X-Ray 02/20/18 14:49 IMPRESSION: NO SIGNIFICANT RADIOGRAPHIC FINDING IN THE CHEST. Head CT 02/20/18 14:49 IMPRESSION: MILD CHRONIC CHANGES OF ATROPHY AND MICROVASCULAR ISCHEMIA. NO ACUTE PROCESS. EVIDENCE OF ACUTE STROKE: NO. Temp Pulse Resp BP Pulse Ox 98.5 F 17 139/75 H 100 02/20/18 20:01 02/20/18 20:01 02/20/18 20:00 02/20/18 20:01 62-year-old female presents via EMS after an episode of unresponsiveness, possible seizure-like activity that occurred just prior to arrival. Patient's daughter is at the bedside and states that the patient called her on the phone to come downstairs when she did she found the patient staring off to one side and unresponsive. At one point she believed that the patient stop breathing and called 911. EMS reports that upon arrival patient was alert, awake and able to ambulate to the bathroom independently. Upon my exam patient is alert, awake and alert and oriented x3. Patient has no focal neurologic deficits. No evidence of incontinence, tongue laceration. Patient does state that she has had one prior similar symptom after coming off of tramadol after many years of use. Patient was monitored in the department for over 6 hours without recurrence of reported symptoms. CBC, CMP, cardiac enzymes including delta troponin are all within normal limits. D-dimer within normal limits. EKG was obtained and showed normal sinus rhythm. Chest x-ray without with no acute process. CT of the head shows mild chronic atrophy but no evidence of stroke. Patient found to have mildly elevated TSH. Patient advised to not drive or operate heavy machinery until evaluated by her primary care physician. Patient was provided copies of all of her imaging and lab work performed today. Family is at the bedside and states that they will stay with the patient tonight. Patient was evaluated and treated as appropriate for the patient's presenting symptoms and complaint, with consideration of any critical or life threatening conditions that may be associated with their obtained history and exam as noted above. All results were discussed with patient and... Patient provided the opportunity to ask questions, and express concerns. Patient was educated on treatments based on their presumed diagnosis as noted above. At this time we will discharge the patient with return precautions and follow-up recommendations. Verbal discharge instructions given a the bedside. Medication warnings reviewed. Patient is in agreement with this plan and has verbalized understanding of return precautions. After careful consideration I feel that that patient can be safely discharged from the emergency department, they were advised to followup with a primary care physician in 2-3 days. Dictation on this chart was performed using voice recognition software and may result in unintended grammatical, spelling, syntax or errors. - Vital Signs Vital signs: Temp Pulse Resp BP Pulse Ox 98.5 F 17 139/75 H 100 02/20/18 20:01 02/20/18 20:01 02/20/18 20:00 02/20/18 20:01 - Laboratory Result Diagrams: 02/20/18 14:10 02/20/18 14:10 Laboratory results interpreted by me: 02/20/18 02/20/18 14:10 14:10 RDW 14.4 H TSH 5.12 H Free T3 pg/mL 2.59 L - Diagnostic Test Radiology reviewed: Image reviewed, Reports reviewed - EKG Interpretation by Me EKG shows normal: Sinus rhythm Rate: Normal Rhythm: NSR When compared to previous EKG there are: No significant change Discharge - Discharge Clinical Impression: Seizure, Elevated blood pressure reading Condition: Good Disposition: HOME, SELF-CARE Instructions: Altered Mental Status ([facility]), Hypothyroidism ([facility]), New Seizure ([facility]), Palpitations (Irregular or Rapid Heartrate) ([facility]) Additional Instructions: Today you had a seizure. It is very important that you do not engage in any activities that could result in severe injury should you have a seizure. Specifically, do not drive a vehicle, go into a body of water, take a bath, climb ladders, or operate any heavy machinery until you have been cleared by your neurologist. Please return to the ED immediately if you have multiple seizures close together, develop a severe headache, weakness, numbness, difficulty speaking, have a seizure in which you do not return to normal within 1 hour of the seizure, or have any other symptoms that are concerning to you. Forms: Elevated Blood Pressure Referrals: LIA WILKINS MD [ACTIVE STAFF] - Follow up as needed
[2018-02-20 15:26] LABS: ABSOLUTE EOSINOPHILS # (AUTO) 0.1 10^3/uL (0.0-0.6); ABSOLUTE LYMPHOCYTES (AUTO) 2.4 10^3/uL (0.5-4.7); ABSOLUTE MONOCYTES (AUTO) 0.5 10^3/uL (0.1-1.4); BASOPHILS % (AUTO) 0.5 % (0-2); EOSINOPHILS % (AUTO) 1.8 % (0-6); HEMATOCRIT 41.5 % (36.0-47.0); HEMOGLOBIN 13.9 g/dL (12.0-15.5); LYMPHOCYTES % (AUTO) 39.4 % (13-45); MEAN CORPUSCULAR HEMOGLOBIN 30.3 pg (27.0-33.4); MEAN CORPUSCULAR HGB CONC 33.4 g/dL (32.0-36.0); MEAN CORPUSCULAR VOLUME 91 fl (80-97); MONOCYTES % (AUTO) 8.6 % (3-13); PLATELET COUNT 283 10^3/uL (150-450); RED BLOOD COUNT 4.58 10^6/uL (3.72-5.28); RED CELL DISTRIBUTION WIDTH 14.4 % (11.5-14.0); SEGMENTED NEUTROPHILS % (AUTO) 49.7 % (42-78); TOTAL CELLS COUNTED % (AUTO) 100 %; WHITE BLOOD COUNT 6.1 10^3/uL (4.0-10.5)
[2018-02-20 15:28] LABS: ALANINE AMINOTRANSFERASE 20 U/L (9-52); ALBUMIN 4.5 g/dL (3.5-5.0); ALKALINE PHOSPHATASE 90 U/L (38-126); ANION GAP 10 (5-19); ASPARTATE AMINO TRANSFERASE 35 U/L (14-36); BILIRUBIN,DIRECT 0.3 mg/dL (0.0-0.4); BILIRUBIN,TOTAL 0.4 mg/dL (0.2-1.3); BLOOD UREA NITROGEN 15 mg/dL (7-20); CALCIUM 9.7 mg/dL (8.4-10.2); CARBON DIOXIDE 29 mmol/L (22-30); CHLORIDE 100 mmol/L (98-107); CREATINE KINASE 79 U/L (30-135); GLUCOSE 98 mg/dL (75-110); POTASSIUM 4.9 mmol/L (3.6-5.0); SODIUM 138.6 mmol/L (137-145); TOTAL PROTEIN 7.7 g/dL (6.3-8.2)
--- NOTE | 2018-02-20 15:33 | RADIOLOGY REPORT (SQ) ---
EXAM DESCRIPTION: CHEST 2 VIEWS COMPLETED DATE/TIME: 02/20/2018 3:26 pm REASON FOR STUDY: seizure COMPARISON: None. TECHNIQUE: Frontal and lateral radiographic views of the chest acquired. NUMBER OF VIEWS: Two view. LIMITATIONS: None. FINDINGS: LUNGS AND PLEURA: No opacities, masses or pneumothorax. No pleural effusion. MEDIASTINUM AND HILAR STRUCTURES: No masses or contour abnormalities. HEART AND VASCULAR STRUCTURES: Heart normal size. No evidence for failure. BONES: No acute findings. HARDWARE: None in the chest. OTHER: No other significant finding. IMPRESSION: NO SIGNIFICANT RADIOGRAPHIC FINDING IN THE CHEST. TECHNICAL DOCUMENTATION: JOB ID: [id number] [employer]- All Rights Reserved Reading location - IP/workstation name: [email or web address]
[2018-02-20 15:37] LABS: CREATINE KINASE MB 0.31 ng/mL (<4.55)
--- NOTE | 2018-02-20 15:42 | RADIOLOGY REPORT (SQ) ---
EXAM DESCRIPTION: CT HEAD WITHOUT COMPLETED DATE/TIME: 02/20/2018 3:33 pm REASON FOR STUDY: seizure COMPARISON: None. TECHNIQUE: Axial images acquired through the brain without intravenous contrast. Images reviewed wi th bone, brain and subdural windows. Additional sagittal and coronal reconstructions were generated. Images stored on PACS. All CT scanners at this facility use dose modulation, iterative reconstruction, and/or weight based d osing when appropriate to reduce radiation dose to as low as reasonably achievable (ALARA). [facility]: Dose Right [facility]: CareDose [facility]: Dose Right [facility]: Teradose 4D [facility]: [place] [employer] RADIATION DOSE: CT Rad equipment meets quality standard of care and radiation dose reduction techniq ues were employed. CTDIvol: 53.2 mGy. DLP: 1097 mGy-cm. mGy. LIMITATIONS: None. FINDINGS: VENTRICLES: Prominent. CEREBRUM: No masses. No hemorrhage. No midline shift. Areas of low density in the white matter mos t likely due to chronic micro-vascular ischemic change. No evidence for acute infarction. CEREBELLUM: No masses. No hemorrhage. No alteration of density. No evidence for acute infarction. EXTRAAXIAL SPACES: Mild age-related involutional change. No fluid collections. No masses. ORBITS AND GLOBE: No intra- or extraconal masses. Normal contour of globe without masses. CALVARIUM: No fracture. PARANASAL SINUSES: No fluid or mucosal thickening. SOFT TISSUES: No mass or hematoma. OTHER: No other significant finding. IMPRESSION: MILD CHRONIC CHANGES OF ATROPHY AND MICROVASCULAR ISCHEMIA. NO ACUTE PROCESS. EVIDENCE OF ACUTE STROKE: NO. TECHNICAL DOCUMENTATION: JOB ID: [id number] Quality ID # [id number]: Final reports with documentation of one or more dose reduction techniques (e.g., Au tomated exposure control, adjustment of the mA and/or kV according to patient size, use of iterative reconstruction technique) 2010 [employer]- All Rights Reserved Reading location - IP/workstation name: [email or web address]
[2018-02-20 15:45] LABS: FREE T3 2.59 pg/mL (2.77-5.27); FREE T4 (FREE THYROXINE) 0.88 ng/dL (0.78-2.19); TROPONIN I < 0.012 ng/mL
[2018-02-20 15:58] LABS: THYROID STIMULATING HORMONE 5.12 uIU/mL (0.47-4.68)
[2018-02-20] MEDS ORDERED: NORMAL SALINE 500 ML IV ONE (17:04)
[2018-02-20] MEDS ORDERED: LEVETIRACETAM 500 MG TABLET PO ONE (19:29)
[2018-02-20 20:09] VITALS: BP 139/75
--- NOTE | 2018-02-20 20:28 | EKG REPORT ---
SEVERITY:- OTHERWISE NORMAL ECG - SINUS RHYTHM ATRIAL PREMATURE COMPLEX : Confirmed by: Anna Hinton 20-Feb-2018 20:28:13
== END 2018-02-20 20:09 | disposition home or self-care (01) ==
LOC: ER 14:22
DX: R56.9 Unspecified convulsions (principal); I10 Essential (primary) hypertension; R55 Syncope and collapse; M54.9 Dorsalgia, unspecified; G89.29 Other chronic pain; Z87.891 Personal history of nicotine dependence
CPT/HCPCS: 93005; 99285; 96361; 96374; 96375; 36415; 84439; 82553; 82550; 83735; 84443; 85025; 80053; 84484; 84481; 85379; 71046; 70450; 93010; A9270 ×2; J1200; J2765; J7040

== ENCOUNTER → 2018-05-04 | Outpatient (CLI) | payer MEDICARE, OTHER ==
--- NOTE | 2018-05-06 08:28 | EEG PRO FEE REPORT ---
EEG INTERPRETATION PATIENT NAME: ESTELA RIVERA ROOM#: ORDER#: [id number] DATE OF STUDY: 05/04/2018 : 1955 REFERRING MD: MAYRA TODD M.D. MEDICATIONS: Celecoxib, Ibuprofen, Lyrica, Protonix, Cymbalta discontinued for 2 months. History This is a 62 year old right handed woman with a history of chronic back pain, lumbar surgery, hypertension, panic attacks and seizures in 2018 with her last seizure January 2018. This EEG was requested for seizures. EEG Interpretation This EEG was recorded in the awake, drowsy, and sleep states. The awake EEG is characterized by a well organized background with a well developed and reactive posterior dominant of 10 Hz. Drowsiness is characterized by slowing of the background rhythms. Vertex waves, K-Complexes, and sleep spindles were seen in the midline head regions. Rhythmic temporal theta of drowsiness {aka psychomotor variant} was noted during drowsiness. This is a benign finding. Photic stimulation resulted no significant changes. Hyperventilation resulted in no significant changes. There were no epileptiform abnormalities noted. The EKG showed a regular rhythm. EEG Impression This EEG is normal for age. Clinical correlation is recommended. INTERPRETING PHYSICIAN: KEVIN CHAVEZ M.D. /: MTEFBRENDON TT: 0814 ID: [id number] /: [id number] TD: [id number] JOB: [id number] cc:Keith PENNY M.D. > MTDD
== END ==
LOC: NEURO 07:51
PROVIDERS: ATTEND Pediatrics
DX: R56.9 Unspecified convulsions (principal); R27.8 Other lack of coordination; F41.9 Anxiety disorder, unspecified
CPT/HCPCS: 95819

== ENCOUNTER → 2019-11-07 | Outpatient (CLI) | payer MEDICARE, OTHER ==
[2019-11-07 12:05] VITALS: BP 111/56
--- NOTE | 2019-11-07 12:05 | ER [facility] ASSESSMENT REPORT ---
Intake - In the Last 14 days Have you traveled outside [place]?: No Have you been in close contact with someone CONFIRMED: No Worked in Healthcare?: No - Symptoms Subjective Fever([place] feverish): No Chills: Yes Muscule Aches: Yes Runny Nose: Yes Sore Throat: Yes Cough (New or worsening chronic cough): Yes Shortness of breath: Yes Nausea or Vomiting: Yes Headache: Yes Abdominal Pain: Yes Diarrhea(3 or more loose stools in last 24 hours): Yes - Do you have any of the following Chronic lung disease: Asthma or emphysema or COPD: No Cystic Fibrosis: No Diabetes: No High Blood Pressure: Yes Cardiovascular Disease: No Chronic Kidney Disease: No Chronic Liver Disease: No Chronic blood disorder like Sickle Cell Disease: No Weak immune system due to disease or medication: No Neurologic condition that limits movement: No Developmental delay - Moderate to Severe: No Recent (within past 2 weeks) or current : No Morbid Obesity (>100 pounds over ideal weight): No - Objective Temperature: 97.5 F Pulse Rate: 68 Respiratory Rate: 18 Blood Pressure: 111/56 O2 Sat by Pulse Oximetry: 98 Objective: Given above, testing performed: If Testing Performed: Test Specimen Type Sent to General - General Information source: Patient Notes: Patient presents to the [facility] for screening for the coronavirus. Patient reports she has had subjective fever, chills, body aches, runny nose, sore throat, dry cough shortness of breath, vomiting headache and abdominal pain. Patient has underlying history of hypertension and is a former smoker. Patient has had the symptoms for the past 2 days. - Related Data Allergies/Adverse Reactions: codeine Allergy (Verified 07/27/17 10:51) Past Medical History - General Information source: Patient - Social History Smoking Status: Former Smoker Family History: Malignancy, Other - father alcoholic - Past Medical History Cardiac Medical History: Reports: Hx Hypertension Neurological Medical History: Reports: Hx Migraine, Hx Seizures Renal/ Medical History: Denies: Hx Peritoneal Dialysis Malignancy Medical History: Reports: Hx Ovarian Cancer - 1980 GI Medical History: Reports: Hx Gastroesophageal Reflux Disease Musculoskeletal Medical History: Reports Hx Arthritis - low back pain, Reports Hx Musculoskeletal Deformity, Reports Hx Musculoskeletal Trauma Psychiatric Medical History: Reports: Hx Depression Past Surgical History: Reports: Hx Appendectomy, Hx Cholecystectomy, Hx Hysterectomy, Hx Orthopedic Surgery - laminectomy, Other - gastroplastyComment Only: Hx Vascular Surgery - Gastroplasty Physical Exam - Notes Notes: The patient was evaluated during the global Covid 19 pandemic, and that diagnosis was suspected/considered upon their initial presentation. Their evaluation, treatment and testing was consistent with current guidelines for patients who present with complaints or symptoms that may be related to Covid 1 9. Full physical exam could not be performed due to covid 19 isolation protocols. Constitutional: Nontoxic appearance, no acute distress Eyes: Nonicteric, extraocular movements intact, sclera clear ENT: Posterior pharynx clear without exudates, no tonsillar hypertrophy Cardiovascular: Heart rate and rhythm regular, no JVD Respiratory: Breath sounds clear bilaterally, nonlabored breathing, no use of accessory muscles, no tachypnea Gastrointestinal: Abdomen not distended Muculoskeletal: Moves all extremities well Skin: Normal color Neuro: Awake alert oriented, normal speech Psych: Normal mood and affect Diagnostic Results Laboratory Results: Patient presents with upper respiratory symptoms worrisome for possible Covid 19. Patient does not have emergency worrying symptoms such as difficulty breathing, shortness of breath, chest pain, pressure, confusion or cyanosis. Patient appears suitable for discharge as vital signs are stable and patient is nontoxic in appearance. Good return precautions have been discussed with patient, patient verbalized understanding and is agreeable with discharge plan of care at this time. Patient Education/Counseling Counseling/Education: Patient was provided with discharge information including: As a person under investigation for Covid 19, the [place] department of Health and Human Services, division of public health advises you to adhere to the following guidance until your test results are reported to you. If your test result is positive, you will receive additional information from your provider and your local health department at that time. Remain at home until you are cleared by the health provider or public health authorities. Keep a log of visitors to your home, notify any visitors to your home of your isolation status. If you plan to move to a new address or leave the county, notify the local health department in your County. Call your doctor or seek care if you have an urgent medical need. Before seeking medical care, call ahead to get instructions from the provider before arriving at the medical office clinic or hospital. Notify them that you are being tested for the virus that causes Covid 19 so that arrangements can be made, as necessary, to prevent transmission to others in the healthcare setting. Next, notify the local health department in your county. If a medical emergency arises and you need to call 911, inform the first responders that you are being tested for the virus that causes Covid 19. Next, notify the local health department in your county. [facility] Discharge - Discharge Clinical Impression: Encounter for screening laboratory testing for COVID-19 virus Condition: Stable Disposition: Home; Selfcare
[2019-11-07 12:41] LABS: A TYPE INFLUENZA AG NEGATIVE (NEGATIVE); B INFLUENZA AG NEGATIVE (NEGATIVE)
== END ==
LOC: RDC 11:25
PROVIDERS: ATTEND Nurse Practitioner Family
DX: Z20.828 Contact with and (suspected) exposure to other viral communicable diseases (principal); R68.83 Chills (without fever); R05 Cough; R06.02 Shortness of breath; J02.9 Acute pharyngitis, unspecified; R11.10 Vomiting, unspecified; R09.89 Other specified symptoms and signs involving the circulatory and respiratory systems; R51 Headache; R10.9 Unspecified abdominal pain; R19.7 Diarrhea, unspecified; M79.10 Myalgia, unspecified site; I10 Essential (primary) hypertension; Z87.891 Personal history of nicotine dependence; Z88.6 Allergy status to analgesic agent; K21.9 Gastro-esophageal reflux disease without esophagitis; Z86.69 Personal history of other diseases of the nervous system and sense organs; Z85.43 Personal history of malignant neoplasm of ovary; M54.2 Cervicalgia; Z86.59 Personal history of other mental and behavioral disorders
CPT/HCPCS: 87070; 87880; 87804; U0003; C9803; 87635; 99201; 99211